=== PATIENT | male | born 1940 | race Caucasian/White ===

== ENCOUNTER 2020-01-05 08:37 | Inpatient (IN) | payer MEDICARE ==
--- NOTE | 2020-01-05 09:11 | ED ---
Complex/Multi-Sys Presentation - HPI Summary HPI Summary: 79 year old M with hx of hereditary hemorrhagic telangiectasia presenting to [facility] accompanied by EMS complains of weakening and numbing of his left leg that has made ambulating at home progressively more difficult. He normally uses a roller walker at home and he says he is losing his ability to put weight on his left leg. He has had weakness and numbness in his left leg for years but an onset of lower left hip pain 10 days ago, an onset of neck pain in the last 2 days, and 2 falls this morning prompted his trip to [facility]. No back injury during the falls noted. SHx of rotator cuff surgery years ago. Uses morphine for chronic pain. The patient rates the pain 5/10 in severity. Symptoms aggravated by nothing. Symptoms alleviated by nothing. - History Of Current Complaint Chief Complaint: EDGeneral Time Seen by Provider: 01/05/20 08:45 Hx Obtained From: Patient Onset/Duration: Lasting Days, Still Present Timing: Constant Aggravating Factor(s): nothing Alleviating Factor(s): nothing Associated Signs And Symptoms: Positive: Weakness - left leg - chronic and progrssive, Other - positive - weakness in left leg that is chronic and progressive, lower left hip pain, neck pain, 2 falls with no back injury - Allergies/Home Medications Allergies/Adverse Reactions: Allergies Allergy/AdvReac Type Severity Reaction Status Date / Time No Known Allergies Allergy Verified 01/05/20 08:50 Home Medications: Home Medications Ascorbic Acid TAB* [Vitamin C TAB*] 1,000 mg PO DAILY 04/23/14 [History Confirmed 01/05/20] Ferrous Sulfate [Iron] 650 mg PO DAILY 04/23/14 [History Confirmed 01/05/20] Finasteride TAB* [Proscar TAB*] 5 mg PO DAILY 04/23/14 [History Confirmed ] Morphine Sulfate [Morphine Sulfate ER] 15 mg PO BID MDD 4 tabs 04/23/14 [ History Confirmed 01/05/20] Atenolol/Chlorthalidone [Atenolol/Chlorthalidone 50-25 mg-] 0.5 tab PO DAILY [History Confirmed 01/05/20] C/Sourcherry/Celery/Grape Seed [Tart Peguero Advanced] 1 cap PO DAILY 01/06/19 [ History Confirmed 01/05/20] Furosemide TAB* [Lasix TAB*] 20 mg PO DAILY PRN 01/06/19 [History Confirmed ] Calcium Carbonate/Vitamin D3 [Calcium 500 + Vit D Caplet] 1 tab PO DAILY [History Confirmed 01/05/20] Polyethylene Glycol 3350* [Miralax*] 17 gm PO DAILY 01/31/19 [History Confirmed 01/05/20] PMH/Surg Hx/FS Hx/Imm Hx Endocrine/Hematology History: Reports: Hx Anemia - ON DAILY IRON Denies: Hx Diabetes Cardiovascular History: Reports: Hx Aneurysm, Hx Hypercholesterolemia, Hx Hypertension - TAKES MEDICATION Denies: Hx Pacemaker/ICD Respiratory History: Reports: Hx Asthma - Hx OF, OK NOW GI History: Reports: Other GI Disorders - USES DAILYT STOOL SOFNER History: Denies: Hx Dialysis, Hx Renal Disease Musculoskeletal History: Reports: Hx Arthritis - MOST JOINTS Sensory History: Reports: Hx Contacts or Glasses - READING Denies: Hx Hearing Aid Opthamlomology History: Reports: Hx Contacts or Glasses - READING Neurological History: Reports: Hx Nerve Disease Denies: Other Neuro Impairments/Disorders - SINCE Hx PAIN & BLEEDING Psychiatric History: Denies: Hx Panic Disorder - Surgical History Surgery Procedure, Year, and Place: 1962 APPENDECTOMY [place]. LT RCT SURGERY [place] Hx Anesthesia Reactions: No Infectious Disease History: No Infectious Disease History: Denies: Traveled Outside the [place] in Last 30 Days - Family History Known Family History: Positive: Non-Contributory - Social History Alcohol Use: None Substance Use Type: Reports: None Smoking Status (MU): Former Smoker Type: Cigarettes Amount Used/How Often: 1PPD 15 YRS Have You Smoked in the Last Year: No Review of Systems Positive: Other - lower left hip pain, neck pain, 2 falls this morning with no back injury Positive: Weakness - left leg - chronic and progressive , Numbness - left leg - chronic and progressive All Other Systems Reviewed And Are Negative: Yes Physical Exam - Summary Physical Exam Summary: Constitutional: Well-developed, Well-nourished, Alert. (-) Distressed Skin: Warm, Dry. Mild skin breakdown of let buttocks. HENT: Normocephalic; Atraumatic Eyes: Conjunctiva normal Neck: Musculoskeletal ROM normal neck. (-) JVD, (-) Stridor, (-) Nuchal rigidity Cardio: Rhythm regular, rate normal, Heart sounds normal; Intact distal pulses; Radial pulses are 2+ and symmetric. (-) Murmur Pulmonary/Chest wall: Effort normal. (-) Respiratory distress, (-) Wheezes, (-) Rales Abd: Soft, (-) tenderness, (-) Distension, (-) Guarding, (-) Rebound Musculoskeletal: (-) Edema Lymph: (-) Cervical adenopathy Neuro: Alert, Oriented x3. 0/5 strength in left foot, ankle, and hip. 4/5 strength in RLE. 4/5 strength left arm and hand. 5/5 strength RUE. Sensation intact. No saddle anesthesia Psych: Mood and affect Normal Triage Information Reviewed: Yes Vital Signs On Initial Exam: Initial Vitals Temp Pulse Resp BP Pulse Ox 97.7 F 63 18 158/82 97 01/05/20 08:45 01/05/20 08:45 01/05/20 08:45 01/05/20 08:45 01/05/20 08:45 Vital Signs Reviewed: Yes Procedures - Sedation Patient Received Moderate/Deep Sedation with Procedure: No Diagnostics - Vital Signs Vital Signs Temp Pulse Resp BP Pulse Ox 01/05/20 08:45 97.7 F 63 18 158/82 97 - Laboratory Result Diagrams: 01/05/20 09:28 01/05/20 09:28 Lab Statement: Any lab studies that have been ordered have been reviewed, and results considered in the medical decision making process. - CT Thoracic Spine CT CT Interpretation Completed By: Radiologist Summary of CT Findings: IMPRESSION: 1. OSTEOPENIA. 2. DEGENERATIVE DISC DISEASE AND OSTEOARTHRITIS. 3. NO ACUTE OSSEOUS INJURY TO THE THORACIC SPINE. 4. 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 has reviewed this report. Cervical Spine CT CT Interpretation Completed By: Radiologist Summary of CT Findings: IMPRESSION: 1. No fracture or traumatic malalignment of cervical spine. 2. Varying degrees of multiple spondylosis results in at least moderate spinal canal. stenosis at C6-C7. There is multilevel neural foraminal stenosis as above. 3. Osteopenia. 4. 1.1 cm nodule left lobe of the thyroid. has reviewed this report. Lumbar Spine CT CT Interpretation Completed By: Radiologist Summary of CT Findings: IMPRESSION: 1. OSTEOPENIA. 2. DEGENERATIVE DISC DISEASE AND OSTEOARTHRITIS DESCRIBED ABOVE. 3. ACUTE OSSEOUS INJURY TO THE LUMBAR SPINE. has reviewed this report. Complex Multi-Symp Course/Dx Course Of Treatment: 79 y/o male w hx of hemorrhagic telangiectasia lumbosacral neuritis, compression of thoracic spinal cord, cervical myelopathy, chronic L sided weakness L>U, p/w worsening weakness and falls at home. - PE elderly male , neuro exam w 0/5 strength LLE, 4/5 LUE. Baseline but worsening per patient. Suspect progression of chronic disease. CT CTL spine obtained, no acute pathology. Patient cannot go home 2/2 safety concerns. Admit to hospital. - Diagnoses Provider Diagnoses: Left leg weakness - Physician Notifications Discussed Care Of Patient With: Yousuf Alexander - admit Time Discussed With Above Provider: 10:30 Instructed by Provider To: Admit As Inpatient Discharge ED - Sign-Out/Discharge Documenting (check all that apply): Patient Departure - admit - Discharge Plan Condition: Stable Disposition: ADMITTED TO [facility] Referrals: Molina Fay MD [Primary Care Provider] - - Billing Disposition and Condition Condition: STABLE Disposition: Admitted to [facility] - Attestation Statements Document Initiated by Vishalibe: Yes Documenting Scribe: Kelechi Marin Provider For Whom Alissa is Documenting (Include Credential): Dr.Caelyn Brittanie Whitley Scribe Attestation: IKelechi, scribed for Dr.Caelyn Brittanie Whitley on 01/05/20 at 1300. Scribe Documentation Reviewed: Yes Provider Attestation: The documentation as recorded by the Kelechi marti accurately reflects the service I personally performed and the decisions made by me, Dr.Caelyn Brittanie Whitley Status of Scribe Document: Viewed
[2020-01-05] MEDS ORDERED: Morphine TAB Extended Release (*) 15 MG TAB.ER PO ONE (09:14)
[2020-01-05 09:34] LABS: ABS Basophils 0.1 10^3/ul (0-0.2); ABS Eosinophils 0.1 10^3/ul (0-0.6); ABS Lymphocytes 0.6 10^3/ul (1.0-4.8); ABS Monocytes 0.6 10^3/ul (0-0.8); ABS Neutrophils 3.3 10^3/ul (1.5-7.7); Eosinophil % 2.7 %; Hematocrit 45 % (42-52); Hemoglobin 15.5 g/dL (14.0-18.0); Mean Corpuscular HGB Conc 34 g/dL (31-36); Mean Corpuscular Hemoglobin 31 pg (27-31); Mean Corpuscular Volume 91 fL (80-94); Mean Platelet Volume 8.8 fL (7.4-10.4); Nucleated Red Blood Cells % 0.1; Platelet Count 188 10^3/uL (150-450); Red Blood Count 4.94 10^6 /uL (4.18-5.48); Red Cell Distribution Width 14 % (10-15); White Blood Count 4.7 10^3/uL (3.5-10.8)
[2020-01-05 09:51] LABS: Albumin 3.3 g/dL (3.2-5.2); Albumin/Globulin Ratio 1.3 (1-3); BUN/Creatinine Ratio 22.1 (8-20); Calcium 8.9 mg/dL (8.6-10.3); EGFR African American 118.2 (>60); EGFR Non-African American 97.7 (>60); Globulin 2.6 g/dL (2-4); Potassium 3.6 mmol/L (3.5-5.0); Total Bilirubin 0.8 mg/dL (0.2-1.0); Total Protein 5.9 g/dL (6.4-8.9)
--- OUTSIDE RECORDS SUMMARY | 2020-01-05 10:31 | XMS REPORT | Continuity of Care Document ---
:1940 External Reference #:[id number] Author Name Molina Fay M.D. Address [address] [place] [address] [address] [place] [address] Care Team Providers Name Role Phone Yandel Zamorano MD - Internal Care Team Information Band Manager [phone] [facility] - Care Team Information Band Manager [phone] Gastroenterology Asif Allison MD - Neurology Care Team Information Band Manager Problems Active Problems Provider Date [place] haemorrhagic telangiectasia syndrome Molina Fay M.D. Onset: 06/24 Disorder of lipid metabolism Molina Fay M.D. Onset: 06/30/2005 Impaired fasting glycaemia Molina Fay M.D. Onset: 07/07/2005 Benign essential hypertension Molina Fay M.D. 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 Onset: 12/2010 obstruction Essential hypertension Molina Fay M.D. Onset: 09/02/2015 Disorder of fatty acid metabolism Molina Fay M.D. Onset: 09/02/2015 Slow transit constipation Molina Fay M.D. Onset: 03/02/2016 Social History Type Date Description Comments Sex Unknown Tobacco Use Start: Unknown End: Unknown Does Not Smoke Cigarettes Smoking Status Reviewed: 07/31/19 Does Not Smoke Cigarettes ETOH Use Rare Alcohol Use Recreational Drug Use Denies Drug Use Allergies, Adverse Reactions, Alerts Description No Known Drug Allergies Medications Active Medications SIG Qnty Indications Ordering Date Provider Compression Stockings use daily; put 2Pair R60.0 Molina Fay, 2017 20-30 mm HG on in in the M.D. Knee High morning and off at bedtime; please also measure for the stockings. Furosemide 1 by mouth in 30tabs R60.0 Molina Fay, 07/20/2018 20mg Tablets the morning if M.D. needed for leg swelling Tart Peguero Advanced one po daily Unknown 01/10/2018 Capsules Fluocinonide apply to 30gm R21 Molina Fay, 12/22/2017 0.1% Cream affected area on M.D. right thigh 2x/day as needed for rash Duoderm CGF Dressing apply to 10units L89.322 Molina Fay, 11/19/2017 affected area on M.D. 4"X4" Misc left buttock, change every 2-3 days, wash wound well before applying a new dressing Triamcinolone apply to 80gm Molina Fay, 10/01/2017 Acetonide affected areas M.D. 0.1% Cream up to 2x/day as needed for itch (do not use on face) Lift Chair 1units I78.0 Molina Fay, 04/04/2017 M.D. M62.81 Morphine Sulfate ER one by mouth twice 60tabs G89.4 Molina Fay, 03/06 daily for chronic M.D. 15mg Tablets ER pain; Rx due 11/26/19 Nizoral use 3 times per week 120units L21.9 Molina Fay, 09/02/2016 2% Shampoo to start ; may taper M.D. when well controlled for scalp itch / rash Calcium 1 qd Unknown 07/25/2015 Tablets Vitamin C 1 bid Unknown 07/25/2015 500mg Capsules Finasteride take one tablet by Unknown 12/06/2012 5mg mouth every day for Tablets enlarged prostate Nystatin apply to affected 30units B35.6 Molina Fay, 10/14/2012 area 3 times a day as M.D. 631918Uugz/GM Cream needed for groin rash. Ferrous Sulfate take 1 tablet (with 0tabs 280.9 Molina Fay, 2011 oj or vit c) every M.D. 325(65Fe) mg Tablets morning on empty DR stomach; increase to 2x/day after 1 week if tolerating well Miralax Use prn For 564.00 Molina Fay, 08/07/2008 3350NF Packet Constipation M.DPhong K59.01 Atenolol-Chlorthalidone Take 1/2 Tablet 45tabs I10 Molina Fay, 2007 50-25mg Tablets By Mouth Every M.D. Morning For High Blood Pressure Medications Administered in Office Medication SIG Qnty Indications Ordering Provider Date injection, kenalog, 10 mg Molina Fay M.D. 01/27/2012 Injection Immunizations CPT Code Status Date Vaccine Lot # [id number] Given 07/21/2019 Influenza Vaccine Split Virus Preservative Free Im Use (hi-dose) 39585 Given 03/10/2019 Shingrix Zoster (Shingles) Vaccine (HZV) Recomb,Subnit,Adjuvanted 92249 Given 01/08/2019 Shingrix Zoster (Shingles) Vaccine (HZV) Recomb,Subnit,Adjuvanted 87221 Given 07/19/2018 Influenza Vaccine, Inactivated, Subunit, [id number] Adjuvanted, For Intrmusc 62570 Given 07/09/2017 Influenza Vaccine Split Virus Preservative Free Im [id number] Use (hi-dose) 13733 Given 07/16/2016 Influenza Vaccine Split Virus Preservative Free Im [id number] Use (hi-dose) 49453 Given 07/26/2015 Prevnar 13 [id number] 20611 Given 07/26/2015 Influenza Vaccine Split Virus Preservative Free Im [id number] Use (hi-dose) 30346 Given 08/28/2014 Adacel or Boostrix, TDaP [id number] 25225 Given 08/28/2014 Influenza Vaccine Split Virus Preservative Free Im [id number] Use (hi-dose) 40996 Given 07/11/2013 Flu, Split Virus 3Yrs [id number] 48655 Given 06/24/2012 Flu, Split Virus 3Yrs [id number] 48193 Given 06/22/2011 Flu, Split Virus 3Yrs [id number] 03322 Given 09/03/2010 Pneumococcal Immunization [id number] 23795 Given 08/20/2010 Flu, Split Virus 3Yrs [id number] 06947 Given 08/26/2009 Td Immunization [id number] 40989 Given 07/26/2009 Flu, Split Virus 3Yrs [id number] 64758 Given 08/07/2008 Flu, Split Virus 3Yrs 44957 Given 08/07/2008 Flu, Split Virus 3Yrs [id number] 87179 Given 08/20/2007 Flu, Split Virus 3Yrs [id number] 31579 Given 08/18/2006 Flu, Split Virus 3Yrs [id number] 05576 Given 08/08/2005 Pneumococcal Immunization 05287 Given 08/08/2005 Pneumococcal Immunization 02625 Given 08/08/2005 Flu, Split Virus 3Yrs 42375 Given 08/08/2005 Flu, Split Virus 3Yrs 29038 Given 08/15/2003 Flu, Split Virus 3Yrs 35186 Given 07/25/1998 Td Immunization 06629 Given Unknown Zostavax Vital Signs Date Vital Result Comment 12/18/2019 3:16pm BP Systolic 142 mmHg BP Diastolic 80 mmHg Heart Rate 70 /min O2 % BldC Oximetry 96 % Weight 209.00 lb 09/08/2019 11:28am BP Systolic 138 mmHg BP Diastolic 80 mmHg Body Temperature 97.5 F Weight 217.00 lb w/shoes Results Test Acquired Date Facility Test Result H/L Range Note CBC Auto 10/06/2019 [facility] White Blood 6.1 10^3/uL Normal 3.5- 10.8 Diff [phone] Count Red Blood Count 4.83 10^6/uL Normal 4.18-5.48 Hemoglobin 15.1 g/dL Normal 14.0-18.0 Hematocrit 44 % Normal 42-52 Mean Corpuscular Volume 91 fL Normal 80-94 Mean Corpuscular Hemoglobin 31 pg Normal 27-31 Mean Corpuscular HGB Conc 34 g/dL Normal 31-36 Red Cell Distribution Width 14 % Normal 10-15 Platelet Count 185 10^3/uL Normal 150-450 Mean Platelet Volume 9.3 fL Normal 7.4-10.4 Abs Neutrophils 4.1 10^3/uL Normal 1.5-7.7 Abs Lymphocytes 0.9 10^3/uL Low 1.0-4.8 Abs Monocytes 0.6 10^3/uL Normal 0-0.8 Abs Eosinophils 0.3 10^3/uL Normal 0-0.6 Abs Basophils 0.0 10^3/uL Normal 0-0.2 Abs Nucleated RBC 0.0 10^3/uL Granulocyte % 67.8 % Lymphocyte % 15.2 % Monocyte % 10.6 % Eosinophil % 5.7 % Basophil % 0.7 % Nucleated Red Blood Cells % 0.1 Basic Metabolic Panel 10/06/2019 [facility] Sodium 138 mmol/L Normal 135-145 [phone] Potassium 4.2 mmol/L Normal 3.5-5.0 Chloride 99 mmol/L Low 101-111 Co2 Carbon Dioxide 33 mmol/L High 22-32 Anion Gap 6 mmol/L Normal 2-11 Glucose 96 mg/dL Normal 70-100 Blood Urea Nitrogen 16 mg/dL Normal 6-24 Creatinine 0.75 mg/dL Normal 0.67-1.17 BUN/Creatinine Ratio 21.3 High 8-20 Calcium 9.3 mg/dL Normal 8.6-10.3 Egfr Non- 101.0 >60 Egfr 122.2 >60 1 1 Because ethnic data is not always readily available, this report includes an eGFR for both -Americans and non- Americans. The National Kidney Disease Education Program (NKDEP) does not endorse the use of the MDRD equation for patients that are not between the ages of 18 and 70, are , have extremes of body size, muscle mass, or nutritional status, or are non- or non-. According to the National Kidney Foundation, irrespective of diagnosis, the stage of the disease is based on the level of kidney function: Stage Description GFR(mL/min/1.73 m(2)) 1 Kidney damage with normal or decreased GFR 90 2 Kidney damage with mild decrease in GFR 60-89 3 Moderate decrease in GFR 30-59 4 Severe decrease in GFR 15-29 5 Kidney failure <15 (or dialysis) Procedures Date Code Description Status 01/31/2019 65120840 Colonoscopy Completed Medical Devices Description No Information Available Encounters Type Date Location Provider Dx Diagnosis Office Visit 12/18/2019 Main Office Molina Fay, R06.00 Dyspnea, unspecified 3:00p M.D. Office Visit 09/08/2019 Main Office Molina Fay, R21 Rash and other 11:30a M.D. nonspecific skin eruption L72.3 Sebaceous cyst Office Visit 07/31/2019 3:00p Main Office Molina Fay, M25.512 Pain in left M.D. shoulder B07.9 Viral wart, unspecified Assessments Date Code Description Provider 12/18/2019 R06.00 Dyspnea, unspecified Molina Fay M.D. 09/08/2019 R21 Rash and other nonspecific skin eruption Molina Fay M.D. 09/08/2019 L72.3 Sebaceous cyst Molina Fay M.D. 07/31/2019 M25.512 Pain in left shoulder Molina Fay M.D. 07/31/2019 B07.9 Viral wart, unspecified Molina Fay M.D. Plan of Treatment Future Appointment(s):03/06/2020 10:30 am - Nurse's Schedule at Main [id number] 10:30 am - Molina Fay M.D. at Main [id number]/18/2019 - Molina Fay M.D.R06.00 Dyspnea, unspecifiedComments:He is describing air hunger, non exertional, no assoc MCKEON. It is coming in setting of inc stress andsome anxiety. Discussed that this appears to be an anxiety equivalent Sx. Discussed option of testing to incl imaging and labs, advised that many providers would advise this, advised yield of such a workup would be low. He elected to defer any eval, RTO prn if Sxs worsening.WRT Tx we discused option of SSRI as well as meds for prn use, all of wc he declined. Functional Status Description No Information Available Mental Status Description No Information Available Referrals Description No Information Available
[2020-01-05] MEDS ORDERED: Magnesium Hydroxide LIQ* 30 ML UDC PO PRN (12:28)
[2020-01-05 13:07] LABS: Urine Appearance Clear; Urine Bilirubin Negative (Negative); Urine Blood Negative (Negative); Urine Color Yellow; Urine Glucose Negative (Negative); Urine Ketones Negative (Negative); Urine Nitrite Negative (Negative); Urine Protein Negative (Negative); Urine Urobilinogen Negative (Negative)
--- NOTE | 2020-01-05 17:15 | HP ---
AMENDED REPORT NOW INCLUDES DESIGNATED COSIGNER - ESIGNED BEFORE ADJUSTMENTS ADMISSION HISTORY AND PHYSICAL: DATE OF ADMISSION: 01/05/20 PRIMARY CARE PROVIDER: Dr. Fay. ADMITTING PHYSICIAN: Dr. Alexander * (dictated by Sav Berrios NP). CHIEF COMPLAINT: Fell, weak. HISTORY OF PRESENT ILLNESS: Mr. eNwberry is a 79-year-old male with past medical history significant for HHT, hypertension, hypercholesterolemia, chronic back pain. He states that he fell twice today, once this morning in the bathroom, was able to get himself up with his walker and then fell again in the dining room. EMS was called and he was brought to the emergency department. The patient states that he has had weakness throughout his left side for years; however, it has been exacerbated over the last 10 days and exceptionally worse today. He states that he has been able to get around the house with his walker but that if he did not have his walker, he would fall. He states his balance is unsteady. He said that he has intermittent tingling to his left upper extremity and left lower extremity which is normal for him as well as weakness. His dosage of morphine which he uses chronically was recently increased. He does have a history of HHT which he states was diagnosed about 10 years ago. He has also had the weakness throughout the left side for about the same amount of time. He says that over the last 10 days his balance has gotten increasingly worse. His is almost 80 years old per his report and she is unable to take care of him. He says that he was barely able to get out of bed early this morning. There is a prior report from January 2019 that mentions the patient reporting that he "cannot use" his left lower extremity. While in the emergency department, the patient did have CT imaging of his thoracic, lumbar and cervical spine. He has had mild elevations in BP, but otherwise his vital signs have been stable. CBC is benign. Chemistry notes low sodium at 132. UA is unremarkable. He did receive a dose of morphine ER 15 mg while in the emergency department. The patient did have a very mild left-sided facial droop during interview and is unsure if he has this at baseline. A CT of the head was ordered; however, the patient declined CT. Declined any further imaging of his head or of his spine. Continued to state that he just wanted it to end and that he wanted to . Denies any thoughts of hurting himself. He is alert and orientedX4, did sign DNR/DNI order. Hospital Medicine was asked to evaluate the patient for admission. PAST MEDICAL HISTORY: 1. Hereditary hemorrhagic telangiectasia. 2. Hypertension. 3. SVT in 1996. 4. Hypercholesterolemia. 5. Childhood asthma. 6. BPH. 7. Chronic back pain. 8. Impaired fasting glycemia. 9. Obesity. 10. AVM of an upper limb. PAST SURGICAL HISTORY: 1. Left rotator cuff surgery in 1980. 2. History of tubular adenoma. 3. Appendectomy in 1961. 4. T and A. 5. Right carpal tunnel release with ulnar nerve decompression. HOME MEDICATIONS: 1. MiraLAX 17 g p.o. daily. 2. Advance 1 cap p.o. daily. 3. Ferrous sulfate 650 mg p.o. daily. 4. Ascorbic acid 1000 mg p.o. daily. 5. Furosemide 20 mg p.o. daily p.r.n. 6. Finasteride 5 mg p.o. daily. 7. Calcium carbonate/vitamin D3 one tab p.o. daily. 8. Atenolol/chlorthalidone 50/25 mg 0.5 tabs p.o. daily. 9. Morphine sulfate ER 15 mg 1 to 2 tabs p.o. b.i.d., max daily dose 4 tabs. ALLERGIES: No known allergies. FAMILY HISTORY: Mother with HHT, diabetes mellitus, and heart disease. Brother with HHT. Maternal grandmother with heart disease and diabetes mellitus. SOCIAL HISTORY: The patient states that a surrogate decision maker for him would be his , Zainab Newberry. He is a retired meza. He currently lives with his . He states that he quit smoking in 1975, started when he was 16 years old and eventually increased his smoking habits to 2 packs per day prior to quitting. He has 2 children. REVIEW OF SYSTEMS: A 12-point review of systems was completed with this patient. Please see HPI for all pertinent positives and negatives. PHYSICAL EXAMINATION CONSTITUTIONAL: The patient is lying in bed, appears uncomfortable. VITAL SIGNS: Last vital signs, temp 97.7, heart rate 63, BP 158/82, respiratory rate 18, O2 sat 97% on room air. HEENT: PERRL. No scleral icterus noted. LYMPHATIC: No anterior or posterior cervical lymphadenopathy noted. RESPIRATORY: Lung sounds clear throughout bilaterally. Normal respiratory effort. CARDIOVASCULAR: Heart rate regular. Grade 2/6 systolic murmur best heard at left upper sternal border. S1, S2 present. No rubs or gallops noted. No JVD. EXTREMITIES: Pedal pulses present 2+ bilaterally. Trace nonpitting edema. GI: Normoactive bowel sounds throughout. Abdomen is soft, mild tenderness to left lower quadrant with deep palpation. NEUROLOGIC: Alert and oriented x3. Significant left-sided weakness with very mild left-sided facial droop which improved during exam. He can follow commands. EOMI. Difficulty with peripheral kurtz to left upper quadrant and right upper quadrant. Difficulty assessing extremity drift. He is able to sense light touch to bilateral feet. Speech is clear. No dysarthria. No abnormality with extinction or inattention. MUSCULOSKELETAL: The patient is able to actively lift left upper extremity up with difficulty, able to lift right upper extremity. right lower extremity, can lift up off of bed for a couple of seconds, unable to move left lower extremity. SKIN: Appears dry and intact. DIAGNOSTIC STUDIES/LAB DATA: CT lumbar spine, impression states osteopenia. Degenerative disk disease and osteoarthritis as described above. No acute osseous injury to the lumbar spine. This was confirmed via telephone with Dr. Ho. Axial images show T12-L1, there is moderate bilateral neural foraminal narrowing. There is no osseous central canal stenosis. L1-L2, there is mild bilateral neural foraminal narrowing. There is no osseous central canal stenosis. L2-L3, there is severe right and moderate left neural foraminal narrowing. There is moderate narrowing in the central canal. L3-L4, there is moderate to severe bilateral neural foraminal narrowing. There is moderate narrowing of the central canal. L4- L5, there is severe bilateral neural foraminal narrowing. There is moderate to severe narrowing of the central canal. L5-S1, there is severe left and mild right neural foraminal narrowing. There is no osseous central canal stenosis. Thoracic spine CT, impression states osteopenia. Degenerative disk disease and osteoarthritis. No acute osseous injury to the thoracic spine. Exposure to granulomatous disease. Intervertebral disks, there is diffuse loss of intervertebral disk height throughout the spine. CT cervical spine, impression states no fracture, traumatic malalignment of cervical spine. Varying degrees of multiple spondylosis results in at least moderate spinal canal stenosis at C6 and C7. There is multilevel neural foraminal stenosis as above. Osteopenia. 1.1 cm nodule on left lobe of the thyroid. There is moderate to severe multilevel vertebral disk height loss with relative sparing of C2 through C3. The paraspinal and prevertebral soft tissues are grossly unremarkable. Dystrophic calcification is seen in the tips of several spinous processes. Varying degrees of multilevel spondylosis results in at least mild spinal canal stenosis at C4 through C5 and moderate spinal canal stenosis at C6 through C7. There is moderate to severe osseous encroachment of the neural foramina bilaterally from the C3 through C4 through C6 through C7. Laboratory values: CBC without a diff essentially unremarkable. Chemistries: Sodium 132, potassium 3.6, chloride 96, carbon dioxide 30, anion gap 6, BUN 17, creatinine 0.77, estimated GFR 97.7, BUN/creatinine ratio 22.1, glucose 110, calcium 8.9. Total bilirubin 0.8, AST 21, ALT 17, alk phosphatase 71. Total protein 5.9, albumin 3.3, globulin 2.6. UA unremarkable for infection with ascorbic acid present. ASSESSMENT AND PLAN: Mr. Newberry is a 79-year-old male with past medical history significant for hereditary hemorrhagic telangiectasia, hypertension, hypercholesterolemia, supraventricular tachycardia, benign prostatic hyperplasia , chronic back pain. He presents today with complaints of excessively increased weakness over the last 10 days for which today he was even more weak and fell 2 times. He is declining further imaging and is showing signs significant with a clinically significant depression. 1. Acute on chronic left-sided weakness. The patient states he has had weakness throughout the left side for many years. However, it has been worse over the last 10 days and exceptionally worse today. He fell twice today. He did have a mild left-sided facial droop during beginning of assessment which seemed to improve mostly by the end of assessment. His weakness may be in relation to an active or prior cerebrovascular accident versus change in medications versus infection, versus significant clinical depression vs bleeding in or surrounding PLANOGRAMMER r/t HHT. Discussed concern for various disease processes with pt. -CTA brain, the patient is declining further imaging. -MRI of spine, again the patient is declining. -Neurology consult, the patient is again declining a Neurology consult -PT/OT. -Treatment of lower extremity muscle spasms. -Decrease morphine dosage to original dose of morphine ER 15 mg b.i.d. -UA. 2. Other depressive episode. The patient continues to speak about how he just wants "it all to end" and wants to . Keeps talking about how he does not want to be a burden to his and family and how much he loves them. He has decided to be a DNR/DNI with limited medical interventions specified by his MOLST. The patient states that he was recently prescribed Prozac, but is unsure if he has started taking this medication yet or not. Prescription has been verified with external medication history. -Psychiatric consult. -Continue fluoxetine. 3. Hypertension. BP has been mildly elevated while in the hospital. -Continue usual antihypertensive medications. 4. Hypercholesterolemia. The patient states that his doctor took him off of his prior cholesterol medications. No need to start new medications at this time. -He can follow up about this as an outpatient with his PCP. 5. Hereditary hemorrhagic telangiectasia. The patient states he has a significant history of bleeding in relation to his hereditary hemorrhagic telangiectasia. -We will hold any anticoagulation at this time and refrain from any other medications that would predispose him to bleeding. 6. Chronic back pain. See imaging reports. The patient does have significant pain. He is treated chronically with morphine. -Continue morphine ER 15 mg p.o. b.i.d. 7. FEN: Regular diet. No caffeine. 8. Code status: DNR/DNI. 9. DVT prophylaxis: SCDs. DISPOSITION: [facility]. CONDITION: Stable. TIME SPENT: Approximately 75 minutes was spent on this admission with almost half of that being [id number] with the patient for interview, exam, and reviewing plan of care. This plan has been discussed with my attending physician, Dr. Alexander, and he agrees with this plan. SAV BERRIOS NP [id number]/CPS #: [id number] MTDD
[2020-01-05] MEDS ORDERED: Acetaminophen TAB* 325 MG PO ONE (18:29)
[2020-01-05] MEDS: Morphine TAB Extended Release (*) 15 MG TAB.ER PO SCH ×2 (20:37→20:49)
[2020-01-05] MEDS: Cyclobenzaprine TAB* 10 MG PO PRN (20:44)
[2020-01-05] MEDS ORDERED: NS 0.9% 1000 ML** 1,000 ML IV ONE (22:45)
[2020-01-06] MEDS: Ascorbic Acid TAB* 500 MG PO SCH (10:18)
[2020-01-06] MEDS: Polyethylene Glycol 3350* 17 GM PACKET PO SCH (10:18)
[2020-01-06] MEDS: Ferrous Sulfate TAB* 325 MG PO SCH (10:19)
[2020-01-06] MEDS: FLUoxetine CAP* 20 MG PO SCH (10:19)
[2020-01-06] MEDS: Atenolol TAB* 25 MG PO SCH (10:20)
[2020-01-06] MEDS: Calcium/Vitamin D TAB 250/125* TAB PO SCH (10:20)
[2020-01-06] MEDS: Morphine TAB Extended Release (*) 15 MG TAB.ER PO SCH ×2 (10:20→22:43)
[2020-01-06] MEDS: Chlorthalidone TAB* 50 MG PO SCH (10:21)
[2020-01-06] MEDS: Finasteride TAB* 5 MG PO SCH (10:21)
--- NOTE | 2020-01-06 10:57 | PN ---
Subjective Date of Service: 01/06/20 Interval History: Resting in bed with at bedside. Discussed events leading up to his admission. He reports he has been dealing with back pain and left sided weakness for apprx 10 yrs. Reports over the last 10 days things have worsened. He reports he saw his PCP on Thursday 12/28 and morphine dose was increased. He reports he use to see Neurology (Dr Allison) for weakness and pain, but decided to stop seeing him and have his PCP order his morphine. He denies any recent trauma or s/s infection. Discussed further evaluation for worsening symptoms and he declines. He reports he wants to be kept comfortable. He further explains he cannot return home with his because she cannot provide the care he needs. Objective Active Medications: Acetaminophen (Tylenol Tab*) 650 mg PO Q4H PRN PRN Reason: PAIN - MILD Ascorbic Acid (Vitamin C Tab*) 1,000 mg PO DAILY [facility] Last Admin: 01/06/20 10:18 Dose: Not Given Atenolol (Tenormin Tab*) 25 mg PO DAILY [facility] Last Admin: 01/06/20 10:20 Dose: 25 mg Calcium/Vitamin D (Oscal D Tab 250/125*) 1 tab PO DAILY [facility] Last Admin: 01/06/20 10:20 Dose: Not Given Chlorthalidone (Hygroton Tab*) 12.5 mg PO DAILY [facility] Last Admin: 01/06/20 10:21 Dose: 12.5 mg Cyclobenzaprine HCl (Flexeril Tab*) 10 mg PO TID PRN PRN Reason: SPASMS Last Admin: 01/05/20 20:44 Dose: 10 mg Ferrous Sulfate (Ferrous Sulfate Tab*) 650 mg PO DAILY [facility] Last Admin: 01/06/20 10:19 Dose: 650 mg Finasteride (Proscar Tab*) 5 mg PO DAILY [facility] Last Admin: 01/06/20 10:21 Dose: 5 mg Fluoxetine HCl (Prozac Cap*) 20 mg PO DAILY [facility] Last Admin: 01/06/20 10:19 Dose: 20 mg Sodium Chloride (Ns 0.9% 1000 Ml) 1,000 mls @ 50 mls/hr IV .PER RATE ONE Stop: 01/06/20 18:44 Last Admin: 01/05/20 22:44 Dose: 50 mls/hr Magnesium Hydroxide (Milk Of Magnesia Liq*) 30 ml PO Q4H PRN PRN Reason: CONSTIPATION Morphine Sulfate (Ms Contin(*)) 15 mg PO BID [facility] Last Admin: 01/06/20 10:20 Dose: 15 mg Polyethylene Glycol/Electrolytes (Miralax (17 Gm Dose Patricio)) 17 gm PO DAILY [facility] Last Admin: 01/06/20 10:18 Dose: Not Given Vital Signs - 8 hr 01/06/20 01/06/20 01/06/20 03:55 07:57 08:17 Temperature 97.1 F 97.3 F Pulse Rate 57 65 Respiratory 18 16 16 Rate Blood Pressure 147/72 149/83 (mmHg) O2 Sat by Pulse 98 97 Oximetry 01/06/20 10:20 Temperature Pulse Rate Respiratory 18 Rate Blood Pressure (mmHg) O2 Sat by Pulse Oximetry Oxygen Devices in Use Now: None Appearance: Comfortable, NAD Eyes: No Scleral Icterus Ears/Nose/Mouth/Throat: Clear Oropharnyx, Mucous Membranes Moist Neck: NL Appearance and Movements; NL JVP Respiratory: Symmetrical Chest Expansion and Respiratory Effort, Clear to Auscultation Cardiovascular: NL Sounds; No Murmurs; No JVD, RRR, No Edema Abdominal: NL Sounds; No Tenderness; No Distention Lymphatic: No Cervical Adenopathy Extremities: No Clubbing, Cyanosis Skin: No Rash or Ulcers Neurological: Alert and Oriented x 3, - - Left sided weakness Nutrition: Taking PO's Result Diagrams: 01/05/20 09:28 01/05/20 09:28 Additional Lab and Data: . Assess/Plan/Problems-Billing Assessment: 79 yr old male with pmh of HHT, htn, hld, chronic back pain; who presented to the ED for a fall and weakness - Patient Problems (1) Left-sided weakness Comment: - Acute on chronic - Left sided weakness for many years that has worsened in the last 10 days - Declining imaging, neuro consult, or further evaluation. - PT/OT consult placed due to patient's request for placement (2) Depression Comment: - Expressed wanting to to admitting provider. Reports to be he wants to be kept comfortable. No active SI - Psych consult - Cont Prozac (3) Hypertension Comment: - Cont Atenolol/Chlorthalidone and Lasix (4) Hereditary hemorrhagic telangiectasia Comment: - Cont home iron - Hold on any AC given hx of bleeding (5) Chronic back pain Comment: - Cont home dose Morphine (6) DVT prophylaxis Comment: - SCDs given HHT (7) DNR (do not resuscitate) Comment: - DNR/DNI Attending: Stanton Kelly
--- NOTE | 2020-01-06 16:17 | CONSULT ---
Identification - Patient Identification Reason for Psychiatric Consultation: Incapacitating Symptoms -: Patient is a 79 year old, M admitted on 01/05/20. - MHU Identification Employment Status: Disabled - pHYSICALLY Hx Psychiatric Hospitalization: No Arrived to Hospital Via: Ambulatory History - Objective HPI: 79 Y/O male with no h/o mental illness but multiple chronic and disabling physical health conditions for which he has been on medical floor. During his assessment he had mentioned not to continue his life , rather to end his sufferings. When I went to see him he was alert and orientedX4, wanted to know why I was there. When I explained my purpose of seeing him he wasn't interested but spoke to me briefly. He reports that his condition is improving and he changed his mind and doesn't have any suicidal thoughts or intents. He acknowledges that he is depressed, and feels helpless. He and his 80y/o has been struggling to care for each other will be fine with a little help at home. 4 children from his and his 's previous marriages live far away but are in touch and supportive. He declined an offer of any psychiatric meds or therapies at this time but will think about it. Denies any psychotic ,manic or hypo-manic symptoms. Past Medical History: Please refer to H&P. Exam Appearance: Well Developed/Nourished Hygiene: Normal Grooming: Well Kept Psychomotor Activities: Abnormal-Decreased Exhibits Abnormal Movement: No Attitude and Relatedness: Minimally Cooperative Eye Contact: Poor - Speech Quality: Unpressured Latencies: Long Quantity: Terse Patient's Decription of Mood: "Fine" Observed Affect: Constricted Affect Consistent with: Dysphoria Patient's Thought Process: Coherent, Goal Directed Thought Content: No Passive Wish, No Suicidal Planning, No Homicidal Ideation, No Paranoid Ideation Experiencing Hallucinations: No, Sensorium is Clear Type of Hallucinations: Visual: No, Auditory: No, Command: No Level of Consciousness: Alert Orientation: Yes Intact, Yes Orientated to Time, Yes Orientated to Place, Yes Orientated to Person Impulse Control: Intact Insight and Judgement: Poor Impression - Impression Clinical Impression: 79 y/o CM admitted to medical floor due to multiple chronic and disabling physical health issues expressed suicidal thought but denies any thoughts end his life any more as he is feeling better. He continues to be depressed but declines an offer for treatments at this time. Plan - Treatment Plan Continued Medication Management: Consider Medication - May offer Zolofe 25 mg PO once a day. Medications: Current Medications Acetaminophen (Tylenol Tab*) 650 mg PO Q4H PRN PRN Reason: PAIN - MILD Ascorbic Acid (Vitamin C Tab*) 1,000 mg PO DAILY [facility] Last Admin: 01/06/20 10:18 Dose: Not Given Atenolol (Tenormin Tab*) 25 mg PO DAILY [facility] Last Admin: 01/06/20 10:20 Dose: 25 mg Calcium/Vitamin D (Oscal D Tab 250/125*) 1 tab PO DAILY [facility] Last Admin: 01/06/20 10:20 Dose: Not Given Chlorthalidone (Hygroton Tab*) 12.5 mg PO DAILY [facility] Last Admin: 01/06/20 10:21 Dose: 12.5 mg Cyclobenzaprine HCl (Flexeril Tab*) 10 mg PO TID PRN PRN Reason: SPASMS Last Admin: 01/05/20 20:44 Dose: 10 mg Ferrous Sulfate (Ferrous Sulfate Tab*) 650 mg PO DAILY [facility] Last Admin: 01/06/20 10:19 Dose: 650 mg Finasteride (Proscar Tab*) 5 mg PO DAILY [facility] Last Admin: 01/06/20 10:21 Dose: 5 mg Fluoxetine HCl (Prozac Cap*) 20 mg PO DAILY [facility] Last Admin: 01/06/20 10:19 Dose: 20 mg Sodium Chloride (Ns 0.9% 1000 Ml) 1,000 mls @ 50 mls/hr IV .PER RATE ONE Stop: 01/06/20 18:44 Last Admin: 01/05/20 22:44 Dose: 50 mls/hr Magnesium Hydroxide (Milk Of Magnesia Liq*) 30 ml PO Q4H PRN PRN Reason: CONSTIPATION Morphine Sulfate (Ms Contin(*)) 15 mg PO BID [facility] Last Admin: 01/06/20 10:20 Dose: 15 mg Polyethylene Glycol/Electrolytes (Miralax (17 Gm Dose Patricio)) 17 gm PO DAILY [facility] Last Admin: 01/06/20 10:18 Dose: Not Given - Discharge Plan Discharge Plan: Outpatient Follow Up Outpatient Program: TBD.
[2020-01-06] MEDS ORDERED: Furosemide TAB* 20 MG PO PRN (16:48)
--- NOTE | 2020-01-06 20:00 | PN ---
Hospitalist Progress Note Date of Service: 01/05/20 ADDENDUM to admission H+P assessment and plan: 1.1cm nodule to L lobe of thyroid - per CT imaging, not easily palpable. -Can follow-up with PCP as outpatient if he so desires in accordance with his wishes.
[2020-01-06] MEDS: Cyclobenzaprine TAB* 10 MG PO PRN (22:56)
[2020-01-07] MEDS: Acetaminophen TAB* 325 MG PO PRN ×2 (01:58→12:40)
[2020-01-07] MEDS: Cyclobenzaprine TAB* 10 MG PO PRN ×3 (02:00→22:03)
[2020-01-07 06:53] LABS: BUN/Creatinine Ratio 17.8 (8-20); Calcium 8.3 mg/dL (8.6-10.3); EGFR African American 125.7 (>60); EGFR Non-African American 103.9 (>60); Potassium 3.3 mmol/L (3.5-5.0)
[2020-01-07] MEDS: Ferrous Sulfate TAB* 325 MG PO SCH (08:18)
[2020-01-07] MEDS: Morphine TAB Extended Release (*) 15 MG TAB.ER PO SCH ×2 (08:19→20:07)
[2020-01-07] MEDS: Finasteride TAB* 5 MG PO SCH (08:19)
[2020-01-07] MEDS: Ascorbic Acid TAB* 500 MG PO SCH (08:19)
[2020-01-07] MEDS: FLUoxetine CAP* 20 MG PO SCH (08:19)
[2020-01-07] MEDS: Atenolol TAB* 25 MG PO SCH (08:19)
[2020-01-07] MEDS: Chlorthalidone TAB* 50 MG PO SCH (08:20)
[2020-01-07] MEDS: Calcium/Vitamin D TAB 250/125* TAB PO SCH (08:20)
[2020-01-07] MEDS: Polyethylene Glycol 3350* 17 GM PACKET PO SCH (08:22)
[2020-01-07] MEDS ORDERED: Potassium Chlor TAB* 20 MEQ TAB.ER PO ONE (16:32)
--- NOTE | 2020-01-07 16:40 | PN ---
Subjective Date of Service: 01/07/20 Interval History: Patient lying in bed on assessment. Continues to report he does not want further evaluation of left hip/leg pain such as MRI or specialist consult. Continues to report left hip/leg pain. Reports he felt some relief when sitting on the edge of them bed. Continues to express wanting placement as he does not feel he can go home with his as his cannot take care of him Objective Active Medications: Acetaminophen (Tylenol Tab*) 650 mg PO Q4H PRN PRN Reason: PAIN - MILD Last Admin: 01/07/20 12:40 Dose: 650 mg Ascorbic Acid (Vitamin C Tab*) 1,000 mg PO DAILY [facility] Last Admin: 01/07/20 08:19 Dose: 1,000 mg Atenolol (Tenormin Tab*) 25 mg PO DAILY [facility] Last Admin: 01/07/20 08:19 Dose: 25 mg Calcium/Vitamin D (Oscal D Tab 250/125*) 1 tab PO DAILY [facility] Last Admin: 01/07/20 08:20 Dose: 1 tab Chlorthalidone (Hygroton Tab*) 12.5 mg PO DAILY [facility] Last Admin: 01/07/20 08:20 Dose: 12.5 mg Cyclobenzaprine HCl (Flexeril Tab*) 10 mg PO TID PRN PRN Reason: SPASMS Last Admin: 01/07/20 12:39 Dose: 10 mg Ferrous Sulfate (Ferrous Sulfate Tab*) 650 mg PO DAILY [facility] Last Admin: 01/07/20 08:18 Dose: 650 mg Finasteride (Proscar Tab*) 5 mg PO DAILY [facility] Last Admin: 01/07/20 08:19 Dose: 5 mg Fluoxetine HCl (Prozac Cap*) 20 mg PO DAILY [facility] Last Admin: 01/07/20 08:19 Dose: 20 mg Furosemide (Lasix Tab*) 20 mg PO DAILY PRN PRN Reason: edema Magnesium Hydroxide (Milk Of Magnesia Liq*) 30 ml PO Q4H PRN PRN Reason: CONSTIPATION Morphine Sulfate (Ms Contin(*)) 15 mg PO BID [facility] Last Admin: 01/07/20 08:19 Dose: 15 mg Polyethylene Glycol/Electrolytes (Miralax (17 Gm Dose Patricio)) 17 gm PO DAILY [facility] Last Admin: 01/07/20 08:22 Dose: 17 gm Potassium Chloride (Klor Con Er Tab*) 40 meq PO ONCE ONE Stop: 01/07/20 16:33 Vital Signs - 8 hr 01/07/20 01/07/20 01/07/20 11:15 11:32 12:39 Temperature 97.8 F Pulse Rate 57 Respiratory 16 20 20 Rate Blood Pressure 113/67 (mmHg) O2 Sat by Pulse 93 Oximetry 01/07/20 01/07/20 15:15 16:32 Temperature 97.3 F Pulse Rate 55 Respiratory 16 20 Rate Blood Pressure 111/64 (mmHg) O2 Sat by Pulse 95 Oximetry Oxygen Devices in Use Now: None Appearance: Comfortable, NAD Eyes: No Scleral Icterus Ears/Nose/Mouth/Throat: Clear Oropharnyx, Mucous Membranes Moist Neck: NL Appearance and Movements; NL JVP Respiratory: Symmetrical Chest Expansion and Respiratory Effort, Clear to Auscultation Cardiovascular: NL Sounds; No Murmurs; No JVD, RRR, No Edema Abdominal: NL Sounds; No Tenderness; No Distention Extremities: No Clubbing, Cyanosis Skin: No Rash or Ulcers Neurological: Alert and Oriented x 3, - - Weakness to LUE and LLE (baseline for patient) Nutrition: Taking PO's Result Diagrams: 01/05/20 09:28 01/07/20 05:56 Additional Lab and Data: . Assess/Plan/Problems-Billing Assessment: 79 yr old male with pmh of HHT, htn, hld, chronic back pain; who presented to the ED for a fall and weakness - Patient Problems (1) Chronic back pain Comment: - Pain consult placed - Cont home dose Morphine (2) Left-sided weakness Comment: - Continues to decline further evaluation such as MRI - Acute on chronic - Left sided weakness for many years that has worsened in the last 10 days - PT recommends STR (3) Depression Comment: - Expressed wanting to to admitting provider. Reports to be he wants to be kept comfortable. No active SI - Psych consult - Cont Prozac (4) Hypertension Comment: - Cont Atenolol/Chlorthalidone and Lasix (5) Hereditary hemorrhagic telangiectasia Comment: - Cont home iron - Hold on any AC given hx of bleeding (6) DVT prophylaxis Comment: - SCDs given HHT (7) DNR (do not resuscitate) Comment: - DNR/DNI Attending: Stanton Kelly
[2020-01-07 16:52] LABS: Magnesium 1.6 mg/dL (1.9-2.7)
[2020-01-07] MEDS ORDERED: Magnesium Sulfate 2 GM IV* 2 GM/50 ML BAG IVPB ONE (17:51)
--- NOTE | 2020-01-08 05:32 | PN ---
Hospitalist Progress Note Date of Service: 01/08/20 Pt with multiple small amts of urine. Bladder scan for 620, auth for straight cath one time, check UA
[2020-01-08 06:10] LABS: Urine Color Red
[2020-01-08 06:23] LABS: Urine Appearance Cloudy; Urine Bacteria Absent (Absent); Urine Bilirubin Negative (Negative); Urine Blood 3+ (Negative); Urine Glucose Negative (Negative); Urine Ketones Trace (Negative); Urine Nitrite Negative (Negative); Urine Protein 1+(30 mg/dL) (Negative); Urine Red Blood Cell 3+(>10/hpf) (Absent); Urine Specific Gravity 1.012 (1.010-1.030); Urine Urobilinogen Negative (Negative); Urine White Blood Cell 3+(>20/hpf) (Absent)
[2020-01-08] MEDS: Ascorbic Acid TAB* 500 MG PO SCH (07:42)
[2020-01-08] MEDS: Polyethylene Glycol 3350* 17 GM PACKET PO SCH (07:42)
[2020-01-08] MEDS: Atenolol TAB* 25 MG PO SCH (07:42)
[2020-01-08] MEDS: FLUoxetine CAP* 20 MG PO SCH (07:42)
[2020-01-08] MEDS: Acetaminophen TAB* 325 MG PO PRN (07:43)
[2020-01-08] MEDS: Chlorthalidone TAB* 50 MG PO SCH (07:43)
[2020-01-08] MEDS: Calcium/Vitamin D TAB 250/125* TAB PO SCH (07:43)
[2020-01-08] MEDS: Ferrous Sulfate TAB* 325 MG PO SCH (07:43)
[2020-01-08] MEDS: Finasteride TAB* 5 MG PO SCH (07:43)
[2020-01-08] MEDS: Morphine TAB Extended Release (*) 15 MG TAB.ER PO SCH ×2 (07:43→20:47)
[2020-01-08] MEDS: Cyclobenzaprine TAB* 10 MG PO PRN ×2 (07:44→20:49)
[2020-01-08 09:44] LABS: BUN/Creatinine Ratio 22.1 (8-20); Calcium 8.7 mg/dL (8.6-10.3); EGFR African American 136.5 (>60); EGFR Non-African American 112.8 (>60); Magnesium 1.8 mg/dL (1.9-2.7); Potassium 3.8 mmol/L (3.5-5.0)
[2020-01-08] MEDS ORDERED: Magnesium Sulfate 1 GM IV* 1 GM/100 ML BAG IV ONE (11:21)
--- NOTE | 2020-01-08 11:41 | PN ---
Subjective Date of Service: 01/08/20 Interval History: Patient drowsy, did not keep eyes open during exam. Spoke very faintly, most answered only yes or no questions but occasionally would respond with a sentence. Stated he was tired, did not sleep well last night due to spasms in primarily his left leg. Denies lightheadedness, dizziness, chest pain, abdominal pain, nausea, vomiting. Family History: Unchanged from Admission Social History: Unchanged from Admission Past Medical History: Unchanged from Admission Objective Active Medications: Acetaminophen (Tylenol Tab*) 650 mg PO Q4H PRN PRN Reason: PAIN - MILD Last Admin: 01/08/20 07:43 Dose: 650 mg Ascorbic Acid (Vitamin C Tab*) 1,000 mg PO DAILY [facility] Last Admin: 01/08/20 07:42 Dose: 1,000 mg Atenolol (Tenormin Tab*) 25 mg PO DAILY [facility] Last Admin: 01/08/20 07:42 Dose: 25 mg Calcium/Vitamin D (Oscal D Tab 250/125*) 1 tab PO DAILY [facility] Last Admin: 01/08/20 07:43 Dose: 1 tab Chlorthalidone (Hygroton Tab*) 12.5 mg PO DAILY [facility] Last Admin: 01/08/20 07:43 Dose: 12.5 mg Cyclobenzaprine HCl (Flexeril Tab*) 10 mg PO TID PRN PRN Reason: SPASMS Last Admin: 01/08/20 07:44 Dose: 10 mg Ferrous Sulfate (Ferrous Sulfate Tab*) 650 mg PO DAILY [facility] Last Admin: 01/08/20 07:43 Dose: 650 mg Finasteride (Proscar Tab*) 5 mg PO DAILY [facility] Last Admin: 01/08/20 07:43 Dose: 5 mg Fluoxetine HCl (Prozac Cap*) 20 mg PO DAILY [facility] Last Admin: 01/08/20 07:42 Dose: 20 mg Furosemide (Lasix Tab*) 20 mg PO DAILY PRN PRN Reason: edema Magnesium Sulfate/Dextrose (Magnesium Sulfate 1 Gm Iv*) 1 gm in 100 mls @ 200 mls/hr IV ONCE ONE Stop: 01/08/20 11:50 Magnesium Hydroxide (Milk Of Magnesia Liq*) 30 ml PO Q4H PRN PRN Reason: CONSTIPATION Morphine Sulfate (Ms Contin(*)) 15 mg PO BID [facility] Last Admin: 01/08/20 07:43 Dose: 15 mg Polyethylene Glycol/Electrolytes (Miralax (17 Gm Dose Patricio)) 17 gm PO DAILY [facility] Last Admin: 01/08/20 07:42 Dose: 17 gm Vital Signs - 8 hr 01/08/20 01/08/20 01/08/20 07:15 07:43 07:44 Temperature 97.6 F Pulse Rate 74 Respiratory 20 18 18 Rate Blood Pressure 119/64 (mmHg) O2 Sat by Pulse 97 Oximetry 01/08/20 01/08/20 01/08/20 07:52 09:54 09:55 Temperature Pulse Rate Respiratory 18 18 18 Rate Blood Pressure (mmHg) O2 Sat by Pulse Oximetry 01/08/20 11:15 Temperature 97.3 F Pulse Rate 58 Respiratory 20 Rate Blood Pressure 119/69 (mmHg) O2 Sat by Pulse 94 Oximetry Oxygen Devices in Use Now: None Appearance: This is a pale, ill looking older gentleman seen resting in bed with eyes closed. Eyes: No Scleral Icterus, PERRLA Ears/Nose/Mouth/Throat: - - Mucous membranes dry, left sided facial droop. Neck: NL Appearance and Movements; NL JVP, Trachea Midline Respiratory: Symmetrical Chest Expansion and Respiratory Effort, Clear to Auscultation, - - Diminished throughtout bilaterally on room air. Cardiovascular: NL Sounds; No Murmurs; No JVD, RRR, No Edema Abdominal: NL Sounds; No Tenderness; No Distention Lymphatic: No Cervical Adenopathy Extremities: No Edema, No Clubbing, Cyanosis Skin: No Rash or Ulcers, No Nodules or Sclerosis Neurological: - - Oriented to self Lines/Tubes/Other Access: Clean, Dry and Intact Peripheral IV Result Diagrams: 01/05/20 09:28 01/08/20 09:06 Additional Lab and Data: . Assess/Plan/Problems-Billing Assessment: 79 yr old male with pmh of HHT, htn, hld, chronic back pain; who presented to the ED for a fall and weakness - Patient Problems (1) Left-sided weakness Current Visit: Yes Status: Acute Code(s): R53.1 - WEAKNESS SNOMED Code(s) : 330066937 Comment: - Continues to decline further evaluation such as MRI. I suspect there may have been a stroke but patient does not wish to pursue diagnosis. - Acute on chronic weakness. - Left sided weakness for many years that has worsened in the last 10 days - PT recommends STR, family amenable. (2) Depression Current Visit: Yes Status: Acute Code(s): F32.9 - MAJOR DEPRESSIVE DISORDER , SINGLE EPISODE, UNSPECIFIED SNOMED Code(s): 54512162 Comment: - Continues to be profoundly depressed. Not inclined toward conversation. Expresses wanting to but has no plan. - Psych consult - Fluoxetine dosing increased by Dr. Gordon. Patient felt like his inital dosing started outpatient was doing nothing. (3) Hereditary hemorrhagic telangiectasia Current Visit: Yes Status: Acute Code(s): I78.0 - HEREDITARY HEMORRHAGIC TELANGIECTASIA SNOMED Code(s): 63198437 Comment: - Cont home iron - Hold on any AC given hx of bleeding (4) Hypertension Current Visit: Yes Status: Acute Code(s): I10 - ESSENTIAL (PRIMARY) HYPERTENSION SNOMED Code(s): 02380015 Comment: - Cont atenolol and prn furosemide. - Hold chlorthalidone as he appears to be dry. (5) BPH (benign prostatic hyperplasia) Current Visit: Yes Status: Acute Code(s): N40.0 - BENIGN PROSTATIC HYPERPLASIA WITHOUT LOWER URINRY TRACT SYMP SNOMED Code(s): 064574320 Comment: -Continue finesteride. Has been having difficulty with passing urine on his own, has been straight cathed twice since midnight. Just bladder scanned a third time at over 600ml residual, was unable to urinate. -Place mendoza cath and start tamsulosin. Keep mendoza in place for a week, then may attempt a voiding trial. (6) DVT prophylaxis Current Visit: Yes Status: Acute Code(s): Z29.9 - ENCOUNTER FOR PROPHYLACTIC MEASURES, UNSPECIFIED SNOMED Code(s): 825866846 Comment: - SCDs given HHT (7) DNR (do not resuscitate) Current Visit: Yes Status: Acute Comment: - DNR/DNI Status and Disposition: Condition: Fair Disp: Inpatient on 4S. D/C to [facility]. Attending: Stanton Kelly
[2020-01-08] MEDS ORDERED: NS 0.9% 1000 ML** 1,000 ML IV SCH (11:45)
--- NOTE | 2020-01-08 15:45 | CONSULT ---
Identification - Patient Identification Reason for Psychiatric Consultation: Incapacitating Symptoms -: Patient is a 79 year old, M admitted on 01/05/20. - MHU Identification Employment Status: Disabled Hx Psychiatric Hospitalization: No History - Objective HPI: Mr. Newberry is seen by psychiatry for follow up. He is met in his room on along with his Zainab. The patient initially dismisses me when I announce my name and reason for visiting. "I'm good. I don't need anything." He appears somatic with a constricted affect. The patient warms up a little upon further interview. He complains bitterly of pain in his left hip from HHT and says "I've been dealing with this for 15 years and I'm done." His notes that she has aphasia and other health problems and cannot take care of him at home anymore. They are looking for SNF placement someplace near [place], [place]. The patient informs me that his primary care physician, Dr. Fay, started him on fluoxetine about a month ago telling him that it would kick in in about 2-4 weeks. "It hasn't really done anything that I can tell." He is OK increasing the dose. Mr. Newberry denies active SI but continues to endorse the hope for an end to his physical suffering. Exam Appearance: Well Developed/Nourished Hygiene: Normal Grooming: Well Kept Psychomotor Activities: Abnormal-Decreased Exhibits Abnormal Movement: No Attitude and Relatedness: Minimally Cooperative Eye Contact: Poor - Speech Quality: Unpressured Latencies: Long Quantity: Terse Patient's Decription of Mood: "Fine" Observed Affect: Constricted Affect Consistent with: Dysphoria Patient's Thought Process: Coherent, Goal Directed Thought Content: No Passive Wish, No Suicidal Planning, No Homicidal Ideation, No Paranoid Ideation Experiencing Hallucinations: No, Sensorium is Clear Type of Hallucinations: Visual: No, Auditory: No, Command: No Level of Consciousness: Alert Orientation: Yes Intact, Yes Orientated to Time, Yes Orientated to Place, Yes Orientated to Person Impulse Control: Intact Insight and Judgement: Poor Impression - Impression Clinical Impression: 79 y/o CM admitted to medical floor due to multiple chronic and disabling physical health issues expressed suicidal thoughts upon admission but denies them currently. Inpatient DSM-V Dx: F32.1 Merits Inpatient Hospitalization: No BSU: Problem List - Patient Problems (1) Major depressive disorder, single episode, moderate Current Visit: Yes Status: Acute Priority: Medium Plan - Treatment Plan Treatment Plan: Will increase fluoxetine from 20 to 40mg PO qday. Psychiatry will continue to follow. Continued Medication Management: Continue Outpt Medication Medications: Current Medications Acetaminophen (Tylenol Tab*) 650 mg PO Q4H PRN PRN Reason: PAIN - MILD Last Admin: 01/08/20 07:43 Dose: 650 mg Ascorbic Acid (Vitamin C Tab*) 1,000 mg PO DAILY [facility] Last Admin: 01/08/20 07:42 Dose: 1,000 mg Atenolol (Tenormin Tab*) 25 mg PO DAILY [facility] Last Admin: 01/08/20 07:42 Dose: 25 mg Calcium/Vitamin D (Oscal D Tab 250/125*) 1 tab PO DAILY [facility] Last Admin: 01/08/20 07:43 Dose: 1 tab Chlorthalidone (Hygroton Tab*) 12.5 mg PO DAILY [facility] Last Admin: 01/08/20 07:43 Dose: 12.5 mg Cyclobenzaprine HCl (Flexeril Tab*) 10 mg PO TID PRN PRN Reason: SPASMS Last Admin: 01/08/20 07:44 Dose: 10 mg Ferrous Sulfate (Ferrous Sulfate Tab*) 650 mg PO DAILY [facility] Last Admin: 01/08/20 07:43 Dose: 650 mg Finasteride (Proscar Tab*) 5 mg PO DAILY [facility] Last Admin: 01/08/20 07:43 Dose: 5 mg Fluoxetine HCl (Prozac Cap*) 20 mg PO DAILY [facility] Last Admin: 01/08/20 07:42 Dose: 20 mg Furosemide (Lasix Tab*) 20 mg PO DAILY PRN PRN Reason: edema Sodium Chloride (Ns 0.9% 1000 Ml) 1,000 mls @ 100 mls/hr IV PER RATE [facility] Stop: 01/08/20 21:44 Last Admin: 01/08/20 12:04 Dose: 100 mls/hr Magnesium Hydroxide (Milk Of Magnesia Liq*) 30 ml PO Q4H PRN PRN Reason: CONSTIPATION Morphine Sulfate (Ms Contin(*)) 15 mg PO BID [facility] Last Admin: 01/08/20 07:43 Dose: 15 mg Polyethylene Glycol/Electrolytes (Miralax (17 Gm Dose Patricio)) 17 gm PO DAILY [facility] Last Admin: 01/08/20 07:42 Dose: 17 gm
[2020-01-08 19:30] LABS: Urine Appearance Cloudy; Urine Bilirubin Negative (Negative); Urine Blood 3+ (Negative); Urine Color Yellow; Urine Glucose Negative (Negative); Urine Ketones Negative (Negative); Urine Nitrite Negative (Negative); Urine Protein Negative (Negative); Urine Specific Gravity 1.012 (1.010-1.030); Urine Urobilinogen Negative (Negative)
[2020-01-08 19:38] LABS: Urine Bacteria 1+ (Absent); Urine Red Blood Cell 3+(>10/hpf) (Absent); Urine White Blood Cell 3+(>20/hpf) (Absent)
[2020-01-08] MEDS: Acetaminophen TAB* 325 MG PO SCH (20:48)
--- NOTE | 2020-01-09 04:50 | PN ---
Hospitalist Progress Note Date of Service: 01/09/20 call for tachycardia, 140's. Ekg ordered however tachmana coppola broke on his own , ekg with new t wave inversions, no chest pain, no sob, no lightheadedness, will check trop with am labs and also echo given hx of hereditary telangiectasia tx would be very limited given risk of bleeding
[2020-01-09 04:51] LABS: ABS Basophils 0.1 10^3/ul (0-0.2); ABS Eosinophils 0.4 10^3/ul (0-0.6); ABS Monocytes 0.9 10^3/ul (0-0.8); ABS Neutrophils 5.6 10^3/ul (1.5-7.7); Eosinophil % 5.3 %; Hematocrit 43 % (42-52); Hemoglobin 14.9 g/dL (14.0-18.0); Lymphocyte % 12.8 %; Mean Corpuscular HGB Conc 35 g/dL (31-36); Mean Corpuscular Hemoglobin 32 pg (27-31); Mean Corpuscular Volume 91 fL (80-94); Mean Platelet Volume 8.6 fL (7.4-10.4); Nucleated Red Blood Cells % 0.1; Platelet Count 163 10^3/uL (150-450); Red Blood Count 4.69 10^6 /uL (4.18-5.48); Red Cell Distribution Width 14 % (10-15)
[2020-01-09 05:08] LABS: Anion Gap 6 mmol/L (2-11); BUN/Creatinine Ratio 23.9 (8-20); Blood Urea Nitrogen 16 mg/dL (6-24); CO2 Carbon Dioxide 26 mmol/L (22-32); Calcium 8.5 mg/dL (8.6-10.3); Chloride 99 mmol/L (101-111); EGFR African American 138.8 (>60); EGFR Non-African American 114.7 (>60); Glucose 102 mg/dL (70-100); Magnesium 1.7 mg/dL (1.9-2.7); Potassium 3.8 mmol/L (3.5-5.0); Sodium 131 mmol/L (135-145)
[2020-01-09 05:42] LABS: Troponin I 0.05 ng/mL (<0.03)
[2020-01-09] MEDS: Cyclobenzaprine TAB* 10 MG PO PRN (06:12)
[2020-01-09 08:17] LABS: Troponin I 0.04 ng/mL (<0.03)
[2020-01-09] MEDS ORDERED: Baclofen TAB* 10 MG PO ONE (08:37)
[2020-01-09] MEDS: Acetaminophen TAB* 325 MG PO SCH ×3 (08:48→20:23)
[2020-01-09] MEDS: Ascorbic Acid TAB* 500 MG PO SCH (08:50)
[2020-01-09] MEDS: Tamsulosin CAP* 0.4 MG PO SCH (08:50)
[2020-01-09] MEDS: Morphine TAB Extended Release (*) 15 MG TAB.ER PO SCH ×2 (08:50→21:27)
[2020-01-09] MEDS: Calcium/Vitamin D TAB 250/125* TAB PO SCH (08:50)
[2020-01-09] MEDS: Finasteride TAB* 5 MG PO SCH (08:52)
[2020-01-09] MEDS: Atenolol TAB* 25 MG PO SCH (08:52)
[2020-01-09] MEDS: FLUoxetine CAP* 20 MG PO SCH (08:53)
[2020-01-09] MEDS: Polyethylene Glycol 3350* 17 GM PACKET PO SCH (08:53)
[2020-01-09] MEDS: Ferrous Sulfate TAB* 325 MG PO SCH (08:53)
--- NOTE | 2020-01-09 10:08 | ECHO ---
*[facility]* [place] [address] Fax #: [phone] Transthoracic Echocardiogram Patient: Jose R Newberry : 1940 Study Date: 01/09/2020 Age: 79 Gender: M HR: 60 bpm Height: 73 in /185.4 cm BSA: 2.21 m^2 Weight: 206.6 lb /93.9 kg BMI: 27.3 kg/m^2 *Potato Peeler: * Chasity Duenas *Referring Physician: * Michael Singleton *Reading Physician: * Clyde Giron MD Indications: Abnormal EKG. History: Risk factors: Former tobacco use. Hypertension. Dyslipidemia. Family history is significant for coronary artery disease. Conclusions Summary: - Left ventricle: Systolic function is normal. The estimated ejection fraction is 55-60%. Wall motion is normal; there are no regional wall motion abnormalities. - Mitral valve: There is trace regurgitation. - Aortic valve: There is no evidence of stenosis. There is trace to mild regurgitation. - Pulmonary arteries: Systolic pressure is within the normal range, estimated to be 35 mm Hg. - Study data: No prior study is available for comparison. Study data: Transthoracic echocardiogram. Procedure: Transthoracic echocardiography was performed. Image quality was good. Complete 2D, spectral Doppler, and color flow Doppler. Location: Bedside. Patient status: Inpatient. Patient room number: 446-02. No prior study is available for comparison. Rhythm: Normal sinus rhythm. Findings Left ventricle: The cavity size is normal. Wall thickness is normal. Systolic function is normal. The estimated ejection fraction is 55-60%. Wall motion is normal; there are no regional wall motion abnormalities. Left ventricular diastolic function parameters are normal. Right ventricle: The cavity size is mildly dilated. Systolic function is normal. Ventricular septum: The ventricular septum is normal. Left atrium: The atrium is normal in size. Right atrium: The atrium is normal in size. Atrial septum: No defect or patent foramen ovale is identified. Mitral valve: The valve is structurally normal. There is no evidence of stenosis. There is trace regurgitation. Aortic valve: The valve is trileaflet. The leaflets are mildly calcified. There is no evidence of stenosis. There is trace to mild regurgitation. Tricuspid valve: There is trace regurgitation. Pulmonic valve: The valve is structurally normal. There is no evidence of stenosis. There is trace regurgitation. Aorta: The aortic root appears normal. The aortic arch appears normal. Pericardium: There is no significant pericardial effusion. Pulmonary arteries: Systolic pressure is within the normal range, estimated to be 35 mm Hg. Systemic veins: Inferior vena cava: The vessel is normal in size. There is (>= 50%) respiratory change in the IVC dimension. Pulmonary veins: The Pulmonary veins appear normal. Measurements Left ventricle Value Ref Aortic valve continued Value Ref BATOOL, LAX 4.4 cm 4.2 - 5.8 LVOT/AV, VTI ratio 0.72 ----- ESD, LAX 2.7 cm 2.5 - 4.0 DAYNA, VTI 2.37 cm^2 ----- FS, LAX 38 % 25 - 43 DAYNA, Vmax 2.38 cm^2 ----- PW, ED, LAX (H) 1.1 cm 0.6 - 1.0 AR peak v 3.45 m/sec ----- AR decel time 3749 ms ----- LVOT Value Ref AR PHT 1087 ms ----- Diam, S 2.05 cm --------- AR peak grad 48 mm Hg ----- Area 3.3 cm^2 --------- Peak rudy, S 1.17 m/sec --------- Mitral valve Value Ref VTI, S 28.3 cm --------- Peak E 0.91 m/sec ----- Peak grad, S 5 mm Hg --------- Peak A 0.86 m/sec ----- Mean grad, S 3 mm Hg --------- Decel time 315 ms ----- Peak grad, D 3.3 mm Hg ----- Ventricular septum Value Ref Peak E/A ratio 1.05 ----- IVS, ED 1.0 cm 0.6 - 1.0 Pulmonic valve Value Ref Right ventricle Value Ref Peak v, S 1.13 m/sec ----- BATOOL, LAX 2.5 cm --------- Peak grad, S 5.2 mm Hg ----- BATOOL major ax, A4C (L) 4.8 cm 5.9 - 8.3 Tricuspid valve Value Ref Left atrium Value Ref TR peak v 2.73 m/sec <=2.8 LA ID 4.1 cm --------- Peak RV-RA grad, S 30 mm Hg ----- SI dim ES, LAX 4.1 cm --------- ML dim, A4C 5.3 cm --------- Aortic root Value Ref SI dim, A4C 6.0 cm --------- Root diam 3.3 cm <4.3 Vol/bsa, ES, 2-p 32 ml/m^2 16 - 34 Ascending aorta Value Ref Right atrium Value Ref AAo AP diam, S 3.6 cm ----- SI dim, ES (H) 5.7 cm 3.4 - 5.3 ML dim, ES, A4C 4.2 cm 2.6 - 4.4 Aortic arch Value Ref SI dim, ES, A4C (H) 5.7 cm 3.4 - 5.3 Arch diam 3.0 cm ----- Aortic valve Value Ref Decending aorta Value Ref Peak v, S 1.61 m/sec --------- Amber peak rudy 0.48 m/sec ----- VTI, S 39.1 cm --------- Mean grad, S 5.7 mm Hg --------- Inferior vena cava Value Ref Peak grad, S 10.4 mm Hg --------- Diam 2.7 cm ----- Legend: (L) and (H) radha values outside specified reference range. Prepared and electronically signed by Clyde Giron MD 01/09/2020 10:07
[2020-01-09] MEDS ORDERED: Magnesium Sulfate 2 GM IV* 2 GM/50 ML BAG IVPB ONE (12:01)
[2020-01-09] MEDS ORDERED: NS 0.9% 1000 ML** 1,000 ML IV ONE (14:59)
--- NOTE | 2020-01-09 15:56 | PN ---
Subjective Date of Service: 01/09/20 Interval History: Patient appeared to be more awake and engaging today. Was sitting up in a chair , speaking clearly. When asked about his mental health and coping he would begin to talk about it, then shut down and state that he was fine and everything was fine, even when talking about being overwhelmed by everything that has been happening to him this past week. He continues to decline further imaging. Reports that he has had trouble sleeping the past two nights due to pain and spasms in his left leg which have intensified this past week. He was given a one time does of baclofen his morning and appeared to respond better to that than flexeril. Family History: Unchanged from Admission Social History: Unchanged from Admission Past Medical History: Unchanged from Admission Objective Active Medications: Acetaminophen (Tylenol Tab*) 975 mg PO TID [facility] Last Admin: 01/09/20 13:50 Dose: 975 mg Ascorbic Acid (Vitamin C Tab*) 1,000 mg PO DAILY [facility] Last Admin: 01/09/20 08:50 Dose: 1,000 mg Atenolol (Tenormin Tab*) 25 mg PO DAILY [facility] Last Admin: 01/09/20 08:52 Dose: 25 mg Calcium/Vitamin D (Oscal D Tab 250/125*) 1 tab PO DAILY [facility] Last Admin: 01/09/20 08:50 Dose: 1 tab Cyclobenzaprine HCl (Flexeril Tab*) 10 mg PO TID PRN PRN Reason: SPASMS Last Admin: 01/09/20 06:12 Dose: 10 mg Ferrous Sulfate (Ferrous Sulfate Tab*) 650 mg PO DAILY [facility] Last Admin: 01/09/20 08:53 Dose: 650 mg Finasteride (Proscar Tab*) 5 mg PO DAILY [facility] Last Admin: 01/09/20 08:52 Dose: 5 mg Fluoxetine HCl (Prozac Cap*) 40 mg PO DAILY [facility] Last Admin: 01/09/20 08:53 Dose: 40 mg Sodium Chloride (Ns 0.9% 1000 Ml) 1,000 mls @ 1,000 mls/hr IV .PER RATE [facility] Stop: 01/09/20 15:58 Last Admin: 01/09/20 15:06 Dose: 1,000 mls/hr Magnesium Hydroxide (Milk Of Magnesia Liq*) 30 ml PO Q4H PRN PRN Reason: CONSTIPATION Morphine Sulfate (Ms Contin(*)) 15 mg PO BID [facility] Last Admin: 01/09/20 08:50 Dose: 15 mg Polyethylene Glycol/Electrolytes (Miralax (17 Gm Dose Patricio)) 17 gm PO DAILY [facility] Last Admin: 01/09/20 08:53 Dose: 17 gm Tamsulosin HCl (Flomax Cap*) 0.4 mg PO DAILY [facility] Last Admin: 01/09/20 08:50 Dose: 0.4 mg Vital Signs - 8 hr 01/09/20 01/09/20 01/09/20 08:00 08:35 08:50 Temperature Pulse Rate Respiratory 20 20 18 Rate Blood Pressure (mmHg) O2 Sat by Pulse Oximetry 01/09/20 01/09/20 01/09/20 11:05 11:10 14:44 Temperature 97.7 F 97.2 F Pulse Rate 59 65 Respiratory 18 18 18 Rate Blood Pressure 100/58 82/50 (mmHg) O2 Sat by Pulse 93 97 Oximetry Oxygen Devices in Use Now: None Appearance: This is a well developed older gentleman who appears to be more awake and engaged, no acute distress. Eyes: No Scleral Icterus, PERRLA Ears/Nose/Mouth/Throat: NL Teeth, Lips, Gums, Clear Oropharnyx, Mucous Membranes Moist Neck: NL Appearance and Movements; NL JVP Respiratory: Symmetrical Chest Expansion and Respiratory Effort, Clear to Auscultation Cardiovascular: NL Sounds; No Murmurs; No JVD, RRR, No Edema Abdominal: NL Sounds; No Tenderness; No Distention Lymphatic: No Cervical Adenopathy Extremities: No Edema, No Clubbing, Cyanosis Skin: No Rash or Ulcers, No Nodules or Sclerosis Neurological: Alert and Oriented x 3 Lines/Tubes/Other Access: Clean, Dry and Intact Peripheral IV Result Diagrams: 01/09/20 04:41 01/09/20 04:41 Additional Lab and Data: . Assess/Plan/Problems-Billing Assessment: 79 yr old male with pmh of HHT, htn, hld, chronic back pain; who presented to the ED for a fall and weakness - Patient Problems (1) Left-sided weakness Current Visit: Yes Status: Acute Code(s): R53.1 - WEAKNESS SNOMED Code(s) : 786890973 Comment: - Continues to decline further evaluation such as MRI. I suspect there may have been a stroke but patient does not wish to pursue diagnosis or treatment. - Acute on chronic weakness. - Left sided weakness for many years that has worsened in the last 10 days - PT recommends STR, family amenable. (2) Depression Current Visit: Yes Status: Acute Code(s): F32.9 - MAJOR DEPRESSIVE DISORDER , SINGLE EPISODE, UNSPECIFIED SNOMED Code(s): 74447064 Comment: - Continues to be profoundly depressed. Not inclined toward conversation. Expresses wanting to but has no plan. - Psych consult - Fluoxetine dosing increased by Dr. Gordon on 01/08/20. Patient felt like his inital dosing started outpatient was doing nothing. (3) Hereditary hemorrhagic telangiectasia Current Visit: Yes Status: Acute Code(s): I78.0 - HEREDITARY HEMORRHAGIC TELANGIECTASIA SNOMED Code(s): 48450903 Comment: - Cont home iron - Hold on any AC given hx of bleeding (4) Hypertension Current Visit: Yes Status: Acute Code(s): I10 - ESSENTIAL (PRIMARY) HYPERTENSION SNOMED Code(s): 95825805 Comment: - Bolused with 1L NS due to hypotension. - Cont atenolol. - Hold chlorthalidone and prn furosemide as he appears to be dry. (5) BPH (benign prostatic hyperplasia) Current Visit: Yes Status: Acute Code(s): N40.0 - BENIGN PROSTATIC HYPERPLASIA WITHOUT LOWER URINRY TRACT SYMP SNOMED Code(s): 853395842 Comment: - Mendoza placed on 01/08/20. Keep mendoza in place for a week, then may attempt a voiding trial. - Continue finesteride and tamsulosin. (6) DVT prophylaxis Current Visit: Yes Status: Acute Code(s): Z29.9 - ENCOUNTER FOR PROPHYLACTIC MEASURES, UNSPECIFIED SNOMED Code(s): 901880993 Comment: - SCDs given HHT (7) DNR (do not resuscitate) Current Visit: Yes Status: Acute Comment: - DNR/DNI Status and Disposition: Condition: Fair Disp: Inpatient on 4S. D/C to [facility] [place]. Attending: Tianna Mancilla
[2020-01-09] MEDS ORDERED: Baclofen TAB* 10 MG PO PRN (15:59)
[2020-01-10 04:46] LABS: ABS Basophils 0.1 10^3/ul (0-0.2); ABS Eosinophils 0.4 10^3/ul (0-0.6); ABS Lymphocytes 0.8 10^3/ul (1.0-4.8); ABS Monocytes 0.8 10^3/ul (0-0.8); Eosinophil % 7.4 %; Hematocrit 40 % (42-52); Lymphocyte % 13.4 %; Mean Corpuscular HGB Conc 35 g/dL (31-36); Mean Corpuscular Hemoglobin 32 pg (27-31); Mean Corpuscular Volume 91 fL (80-94); Mean Platelet Volume 8.7 fL (7.4-10.4); Platelet Count 168 10^3/uL (150-450); Red Blood Count 4.39 10^6 /uL (4.18-5.48); Red Cell Distribution Width 14 % (10-15); White Blood Count 6.1 10^3/uL (3.5-10.8)
[2020-01-10 05:03] LABS: BUN/Creatinine Ratio 29.7 (8-20); Calcium 8.2 mg/dL (8.6-10.3); EGFR African American 146.4 (>60); Magnesium 1.8 mg/dL (1.9-2.7); Potassium 3.8 mmol/L (3.5-5.0)
[2020-01-10] MEDS: Calcium/Vitamin D TAB 250/125* TAB PO SCH (08:28)
[2020-01-10] MEDS: Tamsulosin CAP* 0.4 MG PO SCH (08:28)
[2020-01-10] MEDS: Polyethylene Glycol 3350* 17 GM PACKET PO SCH (08:28)
[2020-01-10] MEDS: Acetaminophen TAB* 325 MG PO SCH ×3 (08:28→20:53)
[2020-01-10] MEDS: Atenolol TAB* 25 MG PO SCH (08:30)
[2020-01-10] MEDS: FLUoxetine CAP* 20 MG PO SCH (08:30)
[2020-01-10] MEDS: Morphine TAB Extended Release (*) 15 MG TAB.ER PO SCH ×2 (08:30→21:43)
[2020-01-10] MEDS: Ascorbic Acid TAB* 500 MG PO SCH (08:30)
[2020-01-10] MEDS: Ferrous Sulfate TAB* 325 MG PO SCH (08:31)
[2020-01-10] MEDS: Finasteride TAB* 5 MG PO SCH (08:31)
[2020-01-10 09:20] LABS: HDL Cholesterol 37.1 mg/dL
[2020-01-10] MEDS ORDERED: LORazepam TAB(*) 0.5 MG PO PRN (11:30)
[2020-01-10] MEDS: Magnesium Oxide TAB* 400 MG PO SCH ×2 (11:38→20:57)
[2020-01-10] MEDS: Baclofen TAB* 10 MG PO SCH ×3 (16:21→20:54)
--- NOTE | 2020-01-10 16:58 | CONSULT ---
Palliative / Hospice Consult Ordering Provider: Nelly Ortega - PCP-Sumeet Referal Reason: Goals of care/PEG/MS - Subjective Code Status: DNR Advance Directives Location: In Chart MOLST Part A Completed: Yes - on chart MOLST Part E Completed:: Yes - on chart - History or Present Illness History or Present Illness: 79yo male with HHT presents to ER with weakness and frequent falling due unsteady gait from hip pain. PMH is significant for hereditary hemorrhagic telangiectasia for 10 yrs, HTN, hypercholesterolemia, chronic back pain, SVT 1996 and BPH. PSHx lives with Zainab [phone] cell, both have 2 adult children from previous partners, retired meza, ex tob, no drugs, no etoh, walks with walker. Studies lumbar CT-osteopenia, DJD, OA, injury to bone, cervical CT-no fx, moderate spinal cord stenosis, osteopenia, thorax CT- osteopenia, DJD, OA, ekg-sinus kristel, ECHO EF 55-60%, H/H 14/40, plt 168, BUN/ Cr 19/.64, egfr 146, Ca 8.2, Mg 1.8, alb 3.3 and UC E.Faecalis. Pt admitted with acute on chronic L sided weakness and fall. All history is from pt, and medical record. Lab Values: Abnormal Lab Results 01/10/20 01/10/20 04:38 04:38 WBC 6.1 RBC 4.39 Hgb 14.0 Hct 40 L MCV 91 MCH 32 H MCHC 35 RDW 14 Plt Count 168 MPV 8.7 Neut % (Auto) 66.0 Lymph % (Auto) 13.4 [place] % (Auto) 12.4 Eos % (Auto) 7.4 Baso % (Auto) 0.8 Absolute Neuts (auto) 4.0 Absolute Lymphs (auto) 0.8 L Absolute Monos (auto) 0.8 Absolute Eos (auto) 0.4 Absolute Basos (auto) 0.1 Absolute Nucleated RBC 0.0 Nucleated RBC % 0.0 Sodium 131 L Potassium 3.8 Chloride 100 L Carbon Dioxide 27 Anion Gap 4 BUN 19 Creatinine 0.64 L Est GFR ( Amer) 146.4 Est GFR (Non-Af Amer) 121.0 BUN/Creatinine Ratio 29.7 H Glucose 103 H Calcium 8.2 L Magnesium 1.8 L Triglycerides 80 Cholesterol 131 LDL Cholesterol 78 HDL Cholesterol 37.1 Laboratory Last Values WBC 6.1 10^3/uL (3.5-10.8) 01/10/20 04:38 RBC 4.39 10^6 /uL (4.18-5.48) 01/10/20 04:38 Hgb 14.0 g/dL (14.0-18.0) 01/10/20 04:38 Hct 40 % (42-52) L 01/10/20 04:38 MCV 91 fL (80-94) 01/10/20 04:38 MCH 32 pg (27-31) H 01/10/20 04:38 MCHC 35 g/dL (31-36) 01/10/20 04:38 RDW 14 % (10-15) 01/10/20 04:38 Plt Count 168 10^3/uL (150-450) 01/10/20 04:38 MPV 8.7 fL (7.4-10.4) 01/10/20 04:38 Neut % (Auto) 66.0 % 01/10/20 04:38 Lymph % (Auto) 13.4 % 01/10/20 04:38 [place] % (Auto) 12.4 % 01/10/20 04:38 Eos % (Auto) 7.4 % 01/10/20 04:38 Baso % (Auto) 0.8 % 01/10/20 04:38 Absolute Neuts (auto) 4.0 10^3/ul (1.5-7.7) 01/10/20 04:38 Absolute Lymphs (auto) 0.8 10^3/ul (1.0-4.8) L 01/10/20 04:38 Absolute Monos (auto) 0.8 10^3/ul (0-0.8) 01/10/20 04:38 Absolute Eos (auto) 0.4 10^3/ul (0-0.6) 01/10/20 04:38 Absolute Basos (auto) 0.1 10^3/ul (0-0.2) 01/10/20 04:38 Absolute Nucleated RBC 0.0 10^3/ul 01/10/20 04:38 Nucleated RBC % 0.0 01/10/20 04:38 Sodium 131 mmol/L (135-145) L 01/10/20 04:38 Potassium 3.8 mmol/L (3.5-5.0) 01/10/20 04:38 Chloride 100 mmol/L (101-111) L 01/10/20 04:38 Carbon Dioxide 27 mmol/L (22-32) 01/10/20 04:38 Anion Gap 4 mmol/L (2-11) 01/10/20 04:38 BUN 19 mg/dL (6-24) 01/10/20 04:38 Creatinine 0.64 mg/dL (0.67-1.17) L 01/10/20 04:38 Est GFR ( Amer) 146.4 (>60) 01/10/20 04:38 Est GFR (Non-Af Amer) 121.0 (>60) 01/10/20 04:38 BUN/Creatinine Ratio 29.7 (8-20) H 01/10/20 04:38 Glucose 103 mg/dL (70-100) H 01/10/20 04:38 Calcium 8.2 mg/dL (8.6-10.3) L 01/10/20 04:38 Magnesium 1.8 mg/dL (1.9-2.7) L 01/10/20 04:38 Total Bilirubin 0.80 mg/dL (0.2-1.0) 01/05/20 09:28 AST 21 U/L (13-39) 01/05/20 09:28 ALT 17 U/L (7-52) 01/05/20 09:28 Alkaline Phosphatase 71 U/L (34-104) 01/05/20 09:28 Troponin I 0.04 ng/mL (<0.03) H* 01/09/20 07:46 Total Protein 5.9 g/dL (6.4-8.9) L 01/05/20 09:28 Albumin 3.3 g/dL (3.2-5.2) 01/05/20 09:28 Globulin 2.6 g/dL (2-4) 01/05/20 09:28 Albumin/Globulin Ratio 1.3 (1-3) 01/05/20 09:28 Triglycerides 80 mg/dL 01/10/20 04:38 Cholesterol 131 mg/dL 01/10/20 04:38 LDL Cholesterol 78 mg/dL 01/10/20 04:38 HDL Cholesterol 37.1 mg/dL 01/10/20 04:38 TSH 2.28 mcIU/mL (0.34-5.60) 01/08/20 09:06 Urine Color Yellow 01/08/20 18:48 Urine Appearance Cloudy 01/08/20 18:48 Urine pH 6.0 (5-9) 01/08/20 18:48 Ur Specific [place] 1.012 (1.010-1.030) 01/08/20 18:48 Urine Protein Negative (Negative) 01/08/20 18:48 Urine Ketones Negative (Negative) 01/08/20 18:48 Urine Blood 3+ (Negative) A 01/08/20 18:48 Urine Nitrate Negative (Negative) 01/08/20 18:48 Urine Bilirubin Negative (Negative) 01/08/20 18:48 Urine Urobilinogen Negative (Negative) 01/08/20 18:48 Ur Leukocyte Esterase 1+ (Negative) A 01/08/20 18:48 Urine WBC (Auto) 3+(>20/hpf) (Absent) A 01/08/20 18:48 Urine RBC (Auto) 3+(>10/hpf) (Absent) A 01/08/20 18:48 Urine Bacteria 1+ (Absent) A 01/08/20 18:48 Urine Glucose Negative (Negative) 01/08/20 18:48 Urine Ascorbic Acid * (Negative) A 01/08/20 18:48 - Objective Active Medications: Acetaminophen (Tylenol Tab*) 975 mg PO TID [facility] Last Admin: 01/10/20 16:21 Dose: Not Given Ascorbic Acid (Vitamin C Tab*) 1,000 mg PO DAILY [facility] Last Admin: 01/10/20 08:30 Dose: 1,000 mg Atenolol (Tenormin Tab*) 25 mg PO DAILY [facility] Last Admin: 01/10/20 08:30 Dose: 25 mg Baclofen (Lioresal Tab*) 10 mg PO TID [facility] Last Admin: 01/10/20 16:21 Dose: Not Given Calcium/Vitamin D (Oscal D Tab 250/125*) 1 tab PO DAILY [facility] Last Admin: 01/10/20 08:28 Dose: 1 tab Ferrous Sulfate (Ferrous Sulfate Tab*) 325 mg PO DAILY [facility] Last Admin: 01/10/20 08:31 Dose: 325 mg Finasteride (Proscar Tab*) 5 mg PO DAILY [facility] Last Admin: 01/10/20 08:31 Dose: 5 mg Fluoxetine HCl (Prozac Cap*) 40 mg PO DAILY [facility] Last Admin: 01/10/20 08:30 Dose: 40 mg Lorazepam (Ativan Tab(*)) 0.5 mg PO Q6H PRN PRN Reason: ANXIETY Magnesium Hydroxide (Milk Of Magnesia Liq*) 30 ml PO Q4H PRN PRN Reason: CONSTIPATION Magnesium Oxide (Magox 400 Tab*) 400 mg PO BID [facility] Last Admin: 01/10/20 11:38 Dose: Not Given Morphine Sulfate (Ms Contin(*)) 15 mg PO BID [facility] Last Admin: 01/10/20 08:30 Dose: 15 mg Morphine Sulfate (Morphine Oral Concentrate*) 5 mg PO Q4H PRN PRN Reason: PAIN - SEVERE Polyethylene Glycol/Electrolytes (Miralax (17 Gm Dose Patricio)) 17 gm PO DAILY [facility] Last Admin: 01/10/20 08:28 Dose: 17 gm Tamsulosin HCl (Flomax Cap*) 0.4 mg PO DAILY [facility] Last Admin: 01/10/20 08:28 Dose: 0.4 mg Vital Signs: Vital Signs: Temp Pulse Resp BP Pulse Ox 97.7 F 59 16 125/63 97 01/10/20 11:15 01/10/20 11:15 01/10/20 11:39 01/10/20 11:15 01/10/20 11:15 Patient Weight: Weight 93.894 kg Intake and Output: Intake & Output 01/08/20 01/09/20 01/10/20 01/11/20 06:59 06:59 06:59 06:59 Intake Total 540 2716 830 0 Output Total 757 972 0253 600 Balance -170 1916 -445 -600 Intake: IV Fluids 990 NS (0.9%) 990 IVPB 106 NS (0.9%) 106 Oral 540 1620 830 0 Output: Urine 140 250 Self 800 1275 350 Other 570 Other: Estimated Void Small Large Medium Other Amount Description via straight cath dt urine retention # Voids 1 ADLs: Meal Record Start: 01/05/20 14: 26 Freq: DAILY@0900,1400,1800 Status: Active Protocol: Created 01/05/20 14:26 System (Rec: 01/05/20 14:26 System TELE-C11) Document 01/05/20 18:00 [id number] (Rec: 01/05/20 18:28 [id number] TELE-C13) Document 01/06/20 18:00 [id number] (Rec: 01/06/20 18:51 [id number] TELE-C03) Document 01/07/20 09:00 [id number] (Rec: 01/07/20 10:09 [id number] TELE-M04) Document 01/07/20 13:35 [id number] (Rec: 01/07/20 13:35 IHY5578 TELE-M04) Document 01/07/20 18:00 [id number] (Rec: 01/07/20 19:04 AJH1789 TELE-C11) Document 01/08/20 09:00 [id number] (Rec: 01/08/20 10:12 CXA4026 TELE-C07) Document 01/08/20 14:00 SSO7096 (Rec: 01/08/20 14:21 [id number] TELE-C13) Document 01/08/20 17:59 [id number] (Rec: 01/08/20 17:59 [id number] TELE-C05) Document 01/09/20 09:00 BYG5115 (Rec: 01/09/20 10:27 [id number] TELE-C05) Document 01/09/20 13:43 [id number] (Rec: 01/09/20 13:43 ACS0622 TELE-C13) Document 01/09/20 18:00 [id number] (Rec: 01/09/20 18:04 DCC1312 TELE-C13) Document 01/10/20 09:00 UUP9920 (Rec: 01/10/20 09:34 DYU4860 TELE-C13) Document 01/10/20 14:00 ATW9004 (Rec: 01/10/20 15:18 GIP7062 TELE-C05) Intake and Output Start: 01/05/20 08: 49 Freq: Status: Active Protocol: Created 01/05/20 08:49 System (Rec: 01/05/20 08:49 System EDRM-C04) Intake and Output Start: 01/05/20 14: 26 Freq: DAILY@0600,1400,2200 Status: Active Protocol: Created 01/05/20 14:26 System (Rec: 01/05/20 14:26 System TELE-C11) Document 01/05/20 22:00 [id number] (Rec: 01/06/20 03:16 [id number] TELE-C05) Document 01/06/20 06:00 [id number] (Rec: 01/06/20 07:35 DGD9660 TELE-C08) Document 01/06/20 08:01 [id number] (Rec: 01/06/20 08:02 MOH5629 TELE-C05) Document 01/06/20 14:21 [id number] (Rec: 01/06/20 14:21 [id number] TELE-C08) Document 01/06/20 22:00 TLS9264 (Rec: 01/06/20 22:57 WFM3850 TELE-C03) Document 01/07/20 06:00 UOU7102 (Rec: 01/07/20 06:23 HLH4525 TELE-C08) Document 01/07/20 13:35 [id number] (Rec: 01/07/20 13:36 SKG4592 TELE-M04) Document 01/07/20 21:57 [id number] (Rec: 01/07/20 21:57 HOO3373 TELE-C11) Document 01/08/20 04:22 [id number] (Rec: 01/08/20 04:24 GHP0389 TELE-C05) Document 01/08/20 06:00 NJZ2918 (Rec: 01/08/20 06:31 FGN5199 TELE-C05) Document 01/08/20 06:00 TTF6024 (Rec: 01/08/20 06:52 OGG2778 TELE-C13) Document 01/08/20 14:00 HYU3657 (Rec: 01/08/20 14:30 YST1802 TELE-C13) Document 01/08/20 22:00 ZBX0553 (Rec: 01/08/20 22:36 DZA5086 TELE-C10) Document 01/08/20 22:00 SAW0754 (Rec: 01/08/20 22:37 HBL6959 TELE-C11) Document 01/09/20 05:39 [id number] (Rec: 01/09/20 05:39 [id number] TELE-C10) Document 01/09/20 13:43 HFZ0643 (Rec: 01/09/20 13:43 EGG7303 TELE-C13) Document 01/09/20 22:00 (Rec: 01/09/20 22:22 TELE-C06) Document 01/10/20 06:00 QSN5189 (Rec: 01/10/20 06:52 OHP3699 TELE-C05) Document 01/10/20 14:00 [id number] (Rec: 01/10/20 15:18 [id number] TELE-C05) Eyes: No Scleral Icterus, PERRLA Ears/Nose/Mouth/Throat: NL Teeth, Lips, Gums, Clear Oropharnyx, Mucous Membranes Moist Neck: NL Appearance and Movements; NL JVP Cardiovascular: NL Sounds; No Murmurs; No JVD, RRR, No Edema Abdominal: NL Sounds; No Tenderness; No Distention Extremities: No Edema, No Clubbing, Cyanosis Neurological: Alert and Oriented x 3 - Assessment Assessment: 79yo male with HHT and chronic pain admitted with weakness and frequent falls - Plan Consult Plan (MU): Palliative Plan: Long discussion with pt and about goals of care. has mild expressive aphasia. Pt's brother had HHT who at [facility] with GI bleed after declining blood transfusions. Pt has a miserable existence always in pain which limit his activities and causes falling due to unsteady gait. He has chronic hip pain related to HHT, spinal stenosis, DJD and osteoarthritis. Pt has stopped eating due to pain and narcotic use for pain control. He has no quality of life always in pain. can no longer care for pt because she can' t pick him up when he falls. ORLINST completed DNR/DNI, no feeding tube, no IV fluids. If pt develops bleeding complications from HHT he doesn't want transfusion. Pt and have expressed an interest in hospice residence. Pt eligibility would be based on pt refusing intervention for HHT, overall decline and not eating/drinking. KPS 40%, PPS 40%. - Time On Unit Date of Evaluation: 01/10/20 Hospice Consult Time in: 16:30 Hospice Consult Time Out: 17:30 Hospice Consult Time Total: 60 > 50% of Time Spend In Counseling or Coordinating Care: Yes
--- NOTE | 2020-01-10 17:03 | CONSULT ---
Identification - Patient Identification Reason for Psychiatric Consultation: Suicidal Ideation -: Patient is a 79 year old, M admitted on 01/05/20. - MHU Identification Employment Status: Disabled Hx Psychiatric Hospitalization: No History - Objective HPI: Mr. Newberry is seen by psychiatry for follow up. He remains in physical distress, depressed and pessimistic about getting better from his chronic HHT condition. Both the patient and his , Zainab, who is at bedside, continue to express an interest and preference for palliative care. The patient is barely eating anything. He is drowsy from pain medication but completely oriented to his surroundings and situation. The patient understands that hospice care entails the discontinuation of life-extending therapies and chooses this. Exam Appearance: Well Developed/Nourished Hygiene: Normal Grooming: Well Kept Psychomotor Activities: Abnormal-Decreased Exhibits Abnormal Movement: No Attitude and Relatedness: Cooperative Eye Contact: Poor - Speech Quality: Unpressured Latencies: Long Quantity: Terse Patient's Decription of Mood: "Fine" Observed Affect: Constricted Affect Consistent with: Dysphoria Patient's Thought Process: Coherent, Goal Directed Thought Content: No Passive Wish, No Suicidal Planning, No Homicidal Ideation, No Paranoid Ideation Experiencing Hallucinations: No, Sensorium is Clear Type of Hallucinations: Visual: No, Auditory: No, Command: No Level of Consciousness: Lethargic Orientation: Yes Intact, Yes Orientated to Time, Yes Orientated to Place, Yes Orientated to Person Impulse Control: Intact Insight and Judgement: Fair Impression - Impression Clinical Impression: 79 y/o CM admitted to medical floor due to multiple chronic and disabling physical health issues presents with depression. Inpatient DSM-V Dx: F32.1 Merits Inpatient Hospitalization: No BSU: Problem List - Patient Problems (1) Major depressive disorder, single episode, moderate Current Visit: Yes Status: Acute Priority: Medium Plan - Treatment Plan Treatment Plan: We have increased the patient's fluoxetine from 20 to 40mg PO qday. In my judgment the patient has capacity to choose palliative care. I see no psychiatric contraindications to prison facility placement. Psychiatry will continue to follow. Continued Medication Management: Continue Outpt Medication Medications: Current Medications Acetaminophen (Tylenol Tab*) 975 mg PO TID [facility] Last Admin: 01/10/20 16:21 Dose: Not Given Ascorbic Acid (Vitamin C Tab*) 1,000 mg PO DAILY [facility] Last Admin: 01/10/20 08:30 Dose: 1,000 mg Atenolol (Tenormin Tab*) 25 mg PO DAILY [facility] Last Admin: 01/10/20 08:30 Dose: 25 mg Baclofen (Lioresal Tab*) 10 mg PO TID [facility] Last Admin: 01/10/20 16:21 Dose: Not Given Calcium/Vitamin D (Oscal D Tab 250/125*) 1 tab PO DAILY [facility] Last Admin: 01/10/20 08:28 Dose: 1 tab Ferrous Sulfate (Ferrous Sulfate Tab*) 325 mg PO DAILY [facility] Last Admin: 01/10/20 08:31 Dose: 325 mg Finasteride (Proscar Tab*) 5 mg PO DAILY [facility] Last Admin: 01/10/20 08:31 Dose: 5 mg Fluoxetine HCl (Prozac Cap*) 40 mg PO DAILY [facility] Last Admin: 01/10/20 08:30 Dose: 40 mg Lorazepam (Ativan Tab(*)) 0.5 mg PO Q6H PRN PRN Reason: ANXIETY Magnesium Hydroxide (Milk Of Magnesia Liq*) 30 ml PO Q4H PRN PRN Reason: CONSTIPATION Magnesium Oxide (Magox 400 Tab*) 400 mg PO BID [facility] Last Admin: 01/10/20 11:38 Dose: Not Given Morphine Sulfate (Ms Contin(*)) 15 mg PO BID [facility] Last Admin: 01/10/20 08:30 Dose: 15 mg Morphine Sulfate (Morphine Oral Concentrate*) 5 mg PO Q4H PRN PRN Reason: PAIN - SEVERE Polyethylene Glycol/Electrolytes (Miralax (17 Gm Dose Patricio)) 17 gm PO DAILY [facility] Last Admin: 01/10/20 08:28 Dose: 17 gm Tamsulosin HCl (Flomax Cap*) 0.4 mg PO DAILY [facility] Last Admin: 01/10/20 08:28 Dose: 0.4 mg
--- NOTE | 2020-01-10 17:04 | PN ---
Subjective Date of Service: 01/10/20 Interval History: After receiving news this morning that [facility] had retracted their offer for a bad, patient became increasingly more depressed, stating that he was giving up and did not want to live anymore. He was tired of dealing with his chronic pain , was aware of his increasingly poor health. in the room. They both requested a palliative care consult. With regards to concerns about his ability to clearly make decisions for himself, I notified Dr. Nielsen who came and spoke to the patient about his current mental health. He agreed that patient was of sound mind to make medical decisions for himself and was comfortable with moving forward with a palliative care consult. I spoke at great length with the patient and his about goals of care, life expectancy, placement for care and medications. They understand that none of the medications he takes are life sustaining and that even if they were to be withdrawn, it would not necessarily hasten his passing. Family History: Unchanged from Admission Social History: Unchanged from Admission Past Medical History: Unchanged from Admission Objective Active Medications: Acetaminophen (Tylenol Tab*) 975 mg PO TID [facility] Last Admin: 01/10/20 16:21 Dose: Not Given Ascorbic Acid (Vitamin C Tab*) 1,000 mg PO DAILY [facility] Last Admin: 01/10/20 08:30 Dose: 1,000 mg Atenolol (Tenormin Tab*) 25 mg PO DAILY [facility] Last Admin: 01/10/20 08:30 Dose: 25 mg Baclofen (Lioresal Tab*) 10 mg PO TID [facility] Last Admin: 01/10/20 16:21 Dose: Not Given Calcium/Vitamin D (Oscal D Tab 250/125*) 1 tab PO DAILY [facility] Last Admin: 01/10/20 08:28 Dose: 1 tab Ferrous Sulfate (Ferrous Sulfate Tab*) 325 mg PO DAILY [facility] Last Admin: 01/10/20 08:31 Dose: 325 mg Finasteride (Proscar Tab*) 5 mg PO DAILY [facility] Last Admin: 01/10/20 08:31 Dose: 5 mg Fluoxetine HCl (Prozac Cap*) 40 mg PO DAILY [facility] Last Admin: 01/10/20 08:30 Dose: 40 mg Lorazepam (Ativan Tab(*)) 0.5 mg PO Q6H PRN PRN Reason: ANXIETY Magnesium Hydroxide (Milk Of Magnesia Liq*) 30 ml PO Q4H PRN PRN Reason: CONSTIPATION Magnesium Oxide (Magox 400 Tab*) 400 mg PO BID [facility] Last Admin: 01/10/20 11:38 Dose: Not Given Morphine Sulfate (Ms Contin(*)) 15 mg PO BID [facility] Last Admin: 01/10/20 08:30 Dose: 15 mg Morphine Sulfate (Morphine Oral Concentrate*) 5 mg PO Q4H PRN PRN Reason: PAIN - SEVERE Polyethylene Glycol/Electrolytes (Miralax (17 Gm Dose Patricio)) 17 gm PO DAILY [facility] Last Admin: 01/10/20 08:28 Dose: 17 gm Tamsulosin HCl (Flomax Cap*) 0.4 mg PO DAILY [facility] Last Admin: 01/10/20 08:28 Dose: 0.4 mg Vital Signs - 8 hr 01/10/20 01/10/20 11:15 11:39 Temperature 97.7 F Pulse Rate 59 Respiratory 20 16 Rate Blood Pressure 125/63 (mmHg) O2 Sat by Pulse 97 Oximetry Oxygen Devices in Use Now: None Appearance: This is a pale, well developed older adult in mild distress. Eyes: No Scleral Icterus, PERRLA Ears/Nose/Mouth/Throat: NL Teeth, Lips, Gums, Clear Oropharnyx, - - Mucous membranes are dry. Neck: NL Appearance and Movements; NL JVP, Trachea Midline Respiratory: Symmetrical Chest Expansion and Respiratory Effort, Clear to Auscultation Cardiovascular: NL Sounds; No Murmurs; No JVD, RRR, No Edema Abdominal: NL Sounds; No Tenderness; No Distention Lymphatic: No Cervical Adenopathy Extremities: No Edema, No Clubbing, Cyanosis, - - Palpable muscle spasms to left lower extremities. Skin: No Rash or Ulcers, No Nodules or Sclerosis Neurological: Alert and Oriented x 3 Lines/Tubes/Other Access: Clean, Dry and Intact Peripheral IV Result Diagrams: 01/10/20 04:38 01/10/20 04:38 Additional Lab and Data: . Microbiology and Other Data: Microbiology 01/08/20 05:50 Urine Culture - Final Urine Enterococcus Faecalis Normal Kelsea Assess/Plan/Problems-Billing Assessment: 79 yr old male with pmh of HHT, htn, hld, chronic back pain; who presented to the ED for a fall and weakness - Patient Problems (1) Left-sided weakness Current Visit: Yes Status: Acute Code(s): R53.1 - WEAKNESS SNOMED Code(s) : 953590428 Comment: - Continues to decline further evaluation such as MRI. I suspect there may have been a stroke but patient does not wish to pursue diagnosis or treatment. - Acute on chronic weakness. - Left sided weakness for many years that has worsened in the last 10 days - PT recommends STR, family amenable. (2) Depression Current Visit: Yes Status: Acute Code(s): F32.9 - MAJOR DEPRESSIVE DISORDER , SINGLE EPISODE, UNSPECIFIED SNOMED Code(s): 89612455 Comment: - Continues to be profoundly depressed. Expressed that he is tired of living with chronic pain and declining health, requested palliative care consult. Dr. Nielsen aware, assessed patient and was supportive of this decision as he was thinking clearly about his limitations and goals of care. Dr. Baeza saw patient , made a limited DNR. - Psych consult - Fluoxetine dosing increased by Dr. Gordon on 01/08/20. Patient felt like his inital dosing started outpatient was doing nothing. (3) Hereditary hemorrhagic telangiectasia Current Visit: Yes Status: Acute Code(s): I78.0 - HEREDITARY HEMORRHAGIC TELANGIECTASIA SNOMED Code(s): 93795032 Comment: - Cont home iron - Hold on any AC given hx of bleeding (4) Hypertension Current Visit: Yes Status: Acute Code(s): I10 - ESSENTIAL (PRIMARY) HYPERTENSION SNOMED Code(s): 73061854 Comment: - Cont atenolol. - Hold chlorthalidone and prn furosemide. (5) BPH (benign prostatic hyperplasia) Current Visit: Yes Status: Acute Code(s): N40.0 - BENIGN PROSTATIC HYPERPLASIA WITHOUT LOWER URINRY TRACT SYMP SNOMED Code(s): 926633045 Comment: - Mendoza placed on 01/08/20. Keep mendoza in place for a week, then may attempt a voiding trial. - Continue finesteride and tamsulosin. (6) DVT prophylaxis Current Visit: Yes Status: Acute Code(s): Z29.9 - ENCOUNTER FOR PROPHYLACTIC MEASURES, UNSPECIFIED SNOMED Code(s): 432110821 Comment: - SCDs given HHT (7) DNR (do not resuscitate) Current Visit: Yes Status: Acute Comment: - DNR/DNI Status and Disposition: Condition: Fair Disp: Inpatient on 4S. D/C to [facility]. Counseling and/or Coordination of Care Minutes: Time spent in direct face contact = 60 minutes. Attending: Tianna Mancilla
[2020-01-10] MEDS: Morphine ORAL CONCENTRATE* 5 MG/0.25 ML ORAL.SYRIN PO PRN (17:52)
[2020-01-11] MEDS: Morphine ORAL CONCENTRATE* 5 MG/0.25 ML ORAL.SYRIN PO PRN (05:14)
[2020-01-11] MEDS: Acetaminophen TAB* 325 MG PO SCH ×3 (09:02→20:06)
[2020-01-11] MEDS: Ferrous Sulfate TAB* 325 MG PO SCH (09:04)
[2020-01-11] MEDS: FLUoxetine CAP* 20 MG PO SCH (09:04)
[2020-01-11] MEDS: Atenolol TAB* 25 MG PO SCH (09:05)
[2020-01-11] MEDS: Calcium/Vitamin D TAB 250/125* TAB PO SCH (09:05)
[2020-01-11] MEDS: Morphine TAB Extended Release (*) 15 MG TAB.ER PO SCH ×2 (09:06→20:07)
[2020-01-11] MEDS: Finasteride TAB* 5 MG PO SCH (09:06)
[2020-01-11] MEDS: Magnesium Oxide TAB* 400 MG PO SCH (09:06)
[2020-01-11] MEDS: Baclofen TAB* 10 MG PO SCH ×3 (09:07→20:07)
[2020-01-11] MEDS: Tamsulosin CAP* 0.4 MG PO SCH (09:07)
[2020-01-11] MEDS: Polyethylene Glycol 3350* 17 GM PACKET PO SCH (09:07)
[2020-01-11] MEDS: Ascorbic Acid TAB* 500 MG PO SCH (09:32)
--- NOTE | 2020-01-11 14:43 | PN ---
Subjective Date of Service: 01/11/20 Interval History: Patient has generalized pain which responds somewhat to pain medication. Patient still feels as if he has no desire to go no living and no desire for further imaging or treatment. Patient is amenable to having all non-palliative treatments discontinued at this time. Family History: Unchanged from Admission Social History: Unchanged from Admission Past Medical History: Unchanged from Admission Objective Active Medications: Acetaminophen (Tylenol Tab*) 975 mg PO TID [facility] Last Admin: 01/11/20 09:02 Dose: 975 mg Baclofen (Lioresal Tab*) 10 mg PO TID [facility] Last Admin: 01/11/20 09:07 Dose: 10 mg Fluoxetine HCl (Prozac Cap*) 40 mg PO DAILY [facility] Last Admin: 01/11/20 09:04 Dose: 40 mg Lorazepam (Ativan Tab(*)) 0.5 mg PO Q6H PRN PRN Reason: ANXIETY Magnesium Hydroxide (Milk Of Magnesia Liq*) 30 ml PO Q4H PRN PRN Reason: CONSTIPATION Morphine Sulfate (Ms Contin(*)) 15 mg PO BID [facility] Last Admin: 01/11/20 09:06 Dose: 15 mg Morphine Sulfate (Morphine Oral Concentrate*) 5 mg PO Q4H PRN PRN Reason: PAIN - SEVERE Last Admin: 01/11/20 05:14 Dose: 5 mg Polyethylene Glycol/Electrolytes (Miralax (17 Gm Dose Patricio)) 17 gm PO DAILY [facility] Last Admin: 01/11/20 09:07 Dose: 17 gm Vital Signs - 8 hr 01/11/20 01/11/20 01/11/20 07:15 08:00 09:06 Temperature 97.1 F Pulse Rate 65 Respiratory 16 16 14 Rate Blood Pressure 133/69 (mmHg) O2 Sat by Pulse 97 Oximetry 01/11/20 01/11/20 09:08 11:40 Temperature Pulse Rate Respiratory 14 15 Rate Blood Pressure (mmHg) O2 Sat by Pulse Oximetry Oxygen Devices in Use Now: None Appearance: Patient is a 79 male who appears older than stated age and is sitting in the bed in [facility]. Eyes: No Scleral Icterus, PERRLA Ears/Nose/Mouth/Throat: NL Teeth, Lips, Gums, Clear Oropharnyx, Mucous Membranes Moist Neck: NL Appearance and Movements; NL JVP, Trachea Midline Respiratory: Symmetrical Chest Expansion and Respiratory Effort, Clear to Auscultation Cardiovascular: NL Sounds; No Murmurs; No JVD, RRR, No Edema Abdominal: NL Sounds; No Tenderness; No Distention, No Hepatosplenomegaly Lymphatic: No Cervical Adenopathy Extremities: No Edema, No Clubbing, Cyanosis Skin: No Rash or Ulcers, No Nodules or Sclerosis Neurological: Alert and Oriented x 3, NL Sensation, NL Muscle Strength and Tone , - - CN II-XII intact. Result Diagrams: 01/10/20 04:38 01/10/20 04:38 Additional Lab and Data: . Microbiology and Other Data: Microbiology 01/08/20 05:50 Urine Culture - Final Urine Enterococcus Faecalis Normal Kelsea Assess/Plan/Problems-Billing Assessment: 79 yr old male with pmh of HHT, htn, hld, chronic back pain; who presented to the ED for a fall and weakness. Patient wants no more intervention or testing and has opted for full comfort measures. - Patient Problems (1) Major depressive episode Current Visit: Yes Status: Acute Code(s): F32.9 - MAJOR DEPRESSIVE DISORDER , SINGLE EPISODE, UNSPECIFIED SNOMED Code(s): 937425886 Comment: - Severe major depression, No response to Fluoxetine and no response to increased dose - Patient has capacity to make his own decisions per psychiatry - Continue Fluoxetine (2) BPH (benign prostatic hyperplasia) Current Visit: Yes Status: Acute Code(s): N40.0 - BENIGN PROSTATIC HYPERPLASIA WITHOUT LOWER URINRY TRACT SYMP SNOMED Code(s): 156060284 Comment: - Mendoza placed on 01/08/20 for retention - Patient is not bothered by mendoza, not interested in treatment for UTI/ bacteriuria - Continue mendoza indefinitely. 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 I suspect there may have been a stroke but patient does not wish to pursue diagnosis or treatment. - Acute on chronic weakness. - Left sided weakness for many years that has worsened in the last 10 days - PT recommends STR, family amenable. (7) DNR (do not resuscitate) Current Visit: Yes Status: Acute Comment: - DNR/DNI - Comfort measure only. (8) DVT prophylaxis Current Visit: Yes Status: Acute Code(s): Z29.9 - ENCOUNTER FOR PROPHYLACTIC MEASURES, UNSPECIFIED SNOMED Code(s): 289577129 Comment: - SCDs given HHT Status and Disposition: Condition: Stable Disp: Inpatient on 4S. D/C to [facility] on comfort care.
[2020-01-12] MEDS: Morphine ORAL CONCENTRATE* 5 MG/0.25 ML ORAL.SYRIN PO PRN ×2 (05:49→10:04)
[2020-01-12] MEDS: Polyethylene Glycol 3350* 17 GM PACKET PO SCH (07:27)
[2020-01-12] MEDS: Acetaminophen TAB* 325 MG PO SCH ×3 (07:27→20:36)
[2020-01-12] MEDS: FLUoxetine CAP* 20 MG PO SCH (07:28)
[2020-01-12] MEDS: Baclofen TAB* 10 MG PO SCH ×3 (07:28→20:40)
[2020-01-12] MEDS: Morphine TAB Extended Release (*) 15 MG TAB.ER PO SCH ×2 (07:28→20:40)
--- NOTE | 2020-01-12 17:18 | PN ---
Subjective Date of Service: 01/12/20 Interval History: Pt states multiple times that he wants "it to be over" and "i just want to " . Denies SI. Continues to refuse treatments or imaging, other than what will help to keep him comfortable. Believes that taking ativan has helped him feel better and has helped to decrease his pain as well. Denies any headache, CP, SOB , N/V/D, unusual numbness/tingling. Family History: Unchanged from Admission Social History: Unchanged from Admission Past Medical History: Unchanged from Admission Objective Active Medications: Acetaminophen (Tylenol Tab*) 975 mg PO TID [facility] Last Admin: 01/12/20 13:24 Dose: 975 mg Baclofen (Lioresal Tab*) 10 mg PO TID [facility] Last Admin: 01/12/20 13:25 Dose: 10 mg Fluoxetine HCl (Prozac Cap*) 40 mg PO DAILY [facility] Last Admin: 01/12/20 07:28 Dose: 40 mg Lorazepam (Ativan Tab(*)) 0.5 mg PO Q6H PRN PRN Reason: ANXIETY Last Admin: 01/12/20 13:25 Dose: 0.5 mg Magnesium Hydroxide (Milk Of Magnesia Liq*) 30 ml PO Q4H PRN PRN Reason: CONSTIPATION Morphine Sulfate (Ms Contin(*)) 15 mg PO BID [facility] Last Admin: 01/12/20 07:28 Dose: 15 mg Morphine Sulfate (Morphine Oral Concentrate*) 5 mg PO Q4H PRN PRN Reason: PAIN - SEVERE Last Admin: 01/12/20 10:04 Dose: 5 mg Polyethylene Glycol/Electrolytes (Miralax (17 Gm Dose Patricio)) 17 gm PO DAILY [facility] Last Admin: 01/12/20 07:27 Dose: 17 gm Vital Signs - 8 hr 01/12/20 01/12/20 01/12/20 10:04 12:06 13:25 Respiratory 20 12 22 Rate 01/12/20 15:01 Respiratory 16 Rate Oxygen Devices in Use Now: None Appearance: laying in bed, able to rest but appears uncomfortable and slightly anxious and sad when awakened Ears/Nose/Mouth/Throat: Clear Oropharnyx Respiratory: Symmetrical Chest Expansion and Respiratory Effort - not taking deep breaths, slightly diminished, no adventitious noises heard Cardiovascular: RRR Abdominal: NL Sounds; No Tenderness; No Distention Extremities: No Edema Neurological: Alert and Oriented x 3 Nutrition: - - refusing to eat/drink Result Diagrams: 01/10/20 04:38 01/10/20 04:38 Additional Lab and Data: . Microbiology and Other Data: Microbiology 01/08/20 05:50 Urine Culture - Final Urine Enterococcus Faecalis Normal Kelsea Assess/Plan/Problems-Billing Assessment: 79 yr old male with pmh of HHT, htn, hld, chronic back pain; who presented to the ED for a fall and increased weakness throughout LUE and LLE. Patient wants no more intervention or testing and has opted for full comfort measures. - Patient Problems (1) Chronic back pain Current Visit: Yes Status: Acute Code(s): M54.9 - DORSALGIA, UNSPECIFIED; G89.29 - OTHER CHRONIC PAIN SNOMED Code(s): 699052678 Comment: And left hip pain. - Cont Morphine and Baclofen - Continue ativan PRN (2) Left-sided weakness Current Visit: Yes Status: Acute Code(s): R53.1 - WEAKNESS SNOMED Code(s) : 450413291 Comment: - Continues to decline further evaluation such as MRI. I suspect there may have been a stroke but patient does not wish to pursue diagnosis or treatment. - Acute on chronic weakness. - Left sided weakness for many years that has worsened in the last 10 days prior to arrival - PT recommends STR, family amenable, however awaiting decision on hospice placement (3) BPH (benign prostatic hyperplasia) Current Visit: Yes Status: Acute Code(s): N40.0 - BENIGN PROSTATIC HYPERPLASIA WITHOUT LOWER URINRY TRACT SYMP SNOMED Code(s): 472405320 Comment: - Mendoza placed on 01/08/20 for retention - Patient is not bothered by mendoza, not interested in treatment for UTI/ bacteriuria - Continue mendoza indefinitely. (4) Depression Current Visit: Yes Status: Acute Code(s): F32.9 - MAJOR DEPRESSIVE DISORDER , SINGLE EPISODE, UNSPECIFIED SNOMED Code(s): 21327671 Comment: - Continues to be profoundly depressed. Expressed that he is tired of living with chronic pain and declining health, requested palliative care consult. Dr. Toledoke aware, assessed patient and was supportive of this decision as he was thinking clearly about his limitations and goals of care. Dr. Baeza saw patient , made a limited DNR. - Psych consult - Fluoxetine dosing increased by Dr. Gordon on 01/08/20. Continue. (5) Hereditary hemorrhagic telangiectasia Current Visit: Yes Status: Acute Code(s): I78.0 - HEREDITARY HEMORRHAGIC TELANGIECTASIA SNOMED Code(s): 87938637 Comment: - Stop Home Iron as pt is declining treatment of most medical conditions at this time (6) Hypercholesteremia Current Visit: Yes Status: Acute Code(s): E78.00 - PURE HYPERCHOLESTEROLEMIA , UNSPECIFIED SNOMED Code(s): 48637304 Comment: Declining treatment of this condition (7) Hypertension Current Visit: Yes Status: Acute Code(s): I10 - ESSENTIAL (PRIMARY) HYPERTENSION SNOMED Code(s): 03282843 Comment: - Stop Atenolol for comfort (8) DNR (do not resuscitate) Current Visit: Yes Status: Acute Comment: - DNR/DNI - Comfort measure only. (9) DVT prophylaxis Current Visit: Yes Status: Acute Code(s): Z29.9 - ENCOUNTER FOR PROPHYLACTIC MEASURES, UNSPECIFIED SNOMED Code(s): 655427622 Comment: - SCDs given HHT Status and Disposition: Condition: Stable Disp: Inpatient on 4S. D/C to [facility] or hospice on comfort care. Attending: Flavia Villarreal
[2020-01-13] MEDS: Acetaminophen TAB* 325 MG PO SCH ×3 (09:36→20:50)
[2020-01-13] MEDS: Morphine TAB Extended Release (*) 15 MG TAB.ER PO SCH ×2 (09:39→21:46)
[2020-01-13] MEDS: Baclofen TAB* 10 MG PO SCH ×3 (09:40→20:50)
[2020-01-13] MEDS: Polyethylene Glycol 3350* 17 GM PACKET PO SCH (09:41)
[2020-01-13] MEDS: FLUoxetine CAP* 20 MG PO SCH (09:41)
--- NOTE | 2020-01-13 16:28 | PN ---
Subjective Date of Service: 01/13/20 Interval History: Pt continues to state "I just want to ". No SI. C/o pain but states that while he is lying still he is "okay". Does not want additional pain medications at this time. Per nursing he is still refusing food. Denies any headache, CP, SOB, N/V/D, unusual numbness/tingling. Continues to decline any further medical treatments or investigations. Accepting pain medications at times, also has been accepting prozac. Otherwise wishes to continue with comfort care measures. Spoke to today on the phone with an update about current condition, let her know that if we suspect any deterioration in condition we will let her know and at that time there should be no issue with visitation. Family History: Unchanged from Admission Social History: Unchanged from Admission Past Medical History: Unchanged from Admission Objective Active Medications: Acetaminophen (Tylenol Tab*) 975 mg PO TID [facility] Last Admin: 01/13/20 14:59 Dose: Not Given Baclofen (Lioresal Tab*) 10 mg PO TID [facility] Last Admin: 01/13/20 14:59 Dose: Not Given Fluoxetine HCl (Prozac Cap*) 40 mg PO DAILY [facility] Last Admin: 01/13/20 09:41 Dose: 40 mg Lorazepam (Ativan Tab(*)) 0.5 mg PO Q6H PRN PRN Reason: ANXIETY Last Admin: 01/12/20 13:25 Dose: 0.5 mg Magnesium Hydroxide (Milk Of Magnesia Liq*) 30 ml PO Q4H PRN PRN Reason: CONSTIPATION Morphine Sulfate (Ms Contin(*)) 15 mg PO BID [facility] Last Admin: 01/13/20 09:39 Dose: 15 mg Morphine Sulfate (Morphine Oral Concentrate*) 5 mg PO Q4H PRN PRN Reason: PAIN - SEVERE Last Admin: 01/12/20 10:04 Dose: 5 mg Polyethylene Glycol/Electrolytes (Miralax (17 Gm Dose Patricio)) 17 gm PO DAILY [facility] Last Admin: 01/13/20 09:41 Dose: Not Given Vital Signs - 8 hr 01/13/20 01/13/20 01/13/20 09:39 11:35 16:12 Respiratory 18 16 18 Rate 01/13/20 16:13 Respiratory 18 Rate Oxygen Devices in Use Now: None Appearance: Laying in bed, guarded, emotional Ears/Nose/Mouth/Throat: Clear Oropharnyx, - - mucous membranes slightly dry Respiratory: - - Not taking deep breaths, regular effort and clear but diminished throughout bilaterally Cardiovascular: RRR Abdominal: - - BSX4, soft, states tenderness to LLQ with palpation Extremities: - - 1+ edema BLE Neurological: - - Appears tired, orientedX3 Nutrition: - - Declining most POs Result Diagrams: 01/10/20 04:38 01/10/20 04:38 Additional Lab and Data: . Microbiology and Other Data: Microbiology 01/08/20 05:50 Urine Culture - Final Urine Enterococcus Faecalis Normal Kelsea Assess/Plan/Problems-Billing Assessment: 79 yr old male with pmh of HHT, htn, hld, chronic back pain; who presented to the ED for a fall and increased weakness throughout LUE and LLE. Patient wants no more intervention or testing and has opted for full comfort measures. - Patient Problems (1) Chronic back pain Current Visit: Yes Status: Acute Code(s): M54.9 - DORSALGIA, UNSPECIFIED; G89.29 - OTHER CHRONIC PAIN SNOMED Code(s): 170452225 Comment: And left hip pain. - Cont Morphine and Baclofen - Continue ativan PRN (2) Left-sided weakness Current Visit: Yes Status: Acute Code(s): R53.1 - WEAKNESS SNOMED Code(s) : 008961995 Comment: - Continues to decline further evaluation such as MRI. I suspect there may have been a stroke but patient does not wish to pursue diagnosis or treatment. - Acute on chronic weakness. - Left sided weakness for many years that has worsened in the last 10 days prior to arrival - PT recommends STR, family amenable, however awaiting decision on hospice placement (3) BPH (benign prostatic hyperplasia) Current Visit: Yes Status: Acute Code(s): N40.0 - BENIGN PROSTATIC HYPERPLASIA WITHOUT LOWER URINRY TRACT SYMP SNOMED Code(s): 979157519 Comment: - Mendoza placed on 01/08/20 for retention - Patient is not bothered by mendoza, not interested in treatment for UTI/ bacteriuria - Continue mendoza indefinitely. (4) Depression Current Visit: Yes Status: Acute Code(s): F32.9 - MAJOR DEPRESSIVE DISORDER , SINGLE EPISODE, UNSPECIFIED SNOMED Code(s): 71094080 Comment: - Continues to be profoundly depressed. Expressed that he is tired of living with chronic pain and declining health, requested palliative care consult. Dr. Nielsen aware, assessed patient and was supportive of this decision as he was thinking clearly about his limitations and goals of care. Dr. Baeza saw patient , made a limited DNR. - Psych consult - Fluoxetine dosing increased by Dr. Gordon on 01/08/20. Continue per pt wishes. (5) Hereditary hemorrhagic telangiectasia Current Visit: Yes Status: Acute Code(s): I78.0 - HEREDITARY HEMORRHAGIC TELANGIECTASIA SNOMED Code(s): 54671355 Comment: - Stop Home Iron as pt is declining treatment of most medical conditions at this time (6) Hypercholesteremia Current Visit: Yes Status: Acute Code(s): E78.00 - PURE HYPERCHOLESTEROLEMIA , UNSPECIFIED SNOMED Code(s): 76565955 Comment: Declining treatment of this condition (7) Hypertension Current Visit: Yes Status: Acute Code(s): I10 - ESSENTIAL (PRIMARY) HYPERTENSION SNOMED Code(s): 93650208 Comment: - Stop Atenolol for comfort (8) DNR (do not resuscitate) Current Visit: Yes Status: Acute Comment: - DNR/DNI - Comfort measure only. (9) DVT prophylaxis Current Visit: Yes Status: Acute Code(s): Z29.9 - ENCOUNTER FOR PROPHYLACTIC MEASURES, UNSPECIFIED SNOMED Code(s): 246461927 Comment: - SCDs given HHT, may d/c if pt does not tolerate in relation to comfort care Status and Disposition: Condition: Stable Disp: Inpatient on 4S. D/C to [facility] or hospice on comfort care. Attending: Flavia Villarreal
[2020-01-14] MEDS: Baclofen TAB* 10 MG PO SCH ×3 (08:44→21:26)
[2020-01-14] MEDS: Acetaminophen TAB* 325 MG PO SCH ×3 (08:44→21:23)
[2020-01-14] MEDS: FLUoxetine CAP* 20 MG PO SCH (08:44)
[2020-01-14] MEDS: Polyethylene Glycol 3350* 17 GM PACKET PO SCH (08:44)
[2020-01-14] MEDS: Morphine TAB Extended Release (*) 15 MG TAB.ER PO SCH ×2 (08:45→21:27)
--- NOTE | 2020-01-14 13:02 | PN ---
Subjective Date of Service: 01/14/20 Interval History: Long discussion with pt this morning about goals of care. Per notes from last night pt had mentioned wanting to be treated for UTI and then later declining. Today he stated multiple times "I should say yes" and then again declining. He denies having any symptoms in relation to a UTI. Continues to c/o the same lower back and L hip pain but nothing new. Spoke about the intention of comfort care vs general medical care and treating specific conditions. Pt made it known that a big concern for him is whether there will be a financial burden on his for whichever route he decides to continue with. Isabella, caser up was present for conversation. He is very difficult to get straight answers from , but after much deliberation it sounds that the pt's overall goal is to remain on comfort care and it was discussed with him that social work will be involved and will see what options are available for insurance coverage. He is continuing to decline any further imaging or workup, does not wish to be treated for UTI at this time, does not wish to be on any of his usual medications but will continue with prozac and pain medications, stated specifically that he does not want to go through PT or be physically rehabilitated. Currently denies any LEON, CP, SOB, abdominal discomfort, unusual numbness/ tingling. Family History: Unchanged from Admission Social History: Unchanged from Admission Past Medical History: Unchanged from Admission Objective Active Medications: Acetaminophen (Tylenol Tab*) 975 mg PO TID [facility] Last Admin: 01/14/20 08:44 Dose: 975 mg Baclofen (Lioresal Tab*) 10 mg PO TID [facility] Last Admin: 01/14/20 08:44 Dose: 10 mg Fluoxetine HCl (Prozac Cap*) 40 mg PO DAILY [facility] Last Admin: 01/14/20 08:44 Dose: 40 mg Lorazepam (Ativan Tab(*)) 0.5 mg PO Q6H PRN PRN Reason: ANXIETY Last Admin: 01/12/20 13:25 Dose: 0.5 mg Magnesium Hydroxide (Milk Of Magnesia Liq*) 30 ml PO Q4H PRN PRN Reason: CONSTIPATION Morphine Sulfate (Ms Contin(*)) 15 mg PO BID [facility] Last Admin: 01/14/20 08:45 Dose: 15 mg Morphine Sulfate (Morphine Oral Concentrate*) 5 mg PO Q4H PRN PRN Reason: PAIN - SEVERE Last Admin: 01/12/20 10:04 Dose: 5 mg Polyethylene Glycol/Electrolytes (Miralax (17 Gm Dose Patricio)) 17 gm PO DAILY [facility] Last Admin: 01/14/20 08:44 Dose: 17 gm Vital Signs - 8 hr 01/14/20 01/14/20 08:45 10:28 Respiratory 20 18 Rate Oxygen Devices in Use Now: None Appearance: Laying in bed, resting but easily awoken, mildly emotional Eyes: No Scleral Icterus Ears/Nose/Mouth/Throat: - - mucous membranes dry Respiratory: Symmetrical Chest Expansion and Respiratory Effort, Clear to Auscultation Cardiovascular: RRR Abdominal: - - normoactive BS throughout, soft, denies tenderness with palpation Extremities: No Edema, - - ppp 2+ bilaterally Neurological: - - tired, easily awoken, mildly emotional Nutrition: - - has had some fluids today per nursing Result Diagrams: 01/10/20 04:38 01/10/20 04:38 Additional Lab and Data: . Microbiology and Other Data: Microbiology 01/08/20 05:50 Urine Culture - Final Urine Enterococcus Faecalis Normal Kelsea Assess/Plan/Problems-Billing Assessment: 79 yr old male with pmh of HHT, htn, hld, chronic back pain; who presented to the ED for a fall and increased weakness throughout LUE and LLE. Patient wants no more intervention or testing and has opted for full comfort measures. - Patient Problems (1) Chronic back pain Current Visit: Yes Status: Acute Code(s): M54.9 - DORSALGIA, UNSPECIFIED; G89.29 - OTHER CHRONIC PAIN SNOMED Code(s): 783340288 Comment: And left hip pain. - Cont Morphine and Baclofen - Continue ativan PRN (2) Left-sided weakness Current Visit: Yes Status: Acute Code(s): R53.1 - WEAKNESS SNOMED Code(s) : 099998451 Comment: - Continues to decline further evaluation such as MRI. I suspect there may have been a stroke but patient does not wish to pursue diagnosis or treatment. - Acute on chronic weakness. - Left sided weakness for many years that has worsened in the last 10 days prior to arrival - At this time pt is declining any PT or rehab and wishes to remain on comfort care status (3) BPH (benign prostatic hyperplasia) Current Visit: Yes Status: Acute Code(s): N40.0 - BENIGN PROSTATIC HYPERPLASIA WITHOUT LOWER URINRY TRACT SYMP SNOMED Code(s): 868836713 Comment: - Mendoza placed on 01/08/20 for retention - Patient is not bothered by mendoza, not interested in treatment for UTI/ bacteriuria - Continue mendoza indefinitely. (4) Depression Current Visit: Yes Status: Acute Code(s): F32.9 - MAJOR DEPRESSIVE DISORDER , SINGLE EPISODE, UNSPECIFIED SNOMED Code(s): 09352621 Comment: - Continues to be profoundly depressed. Expressed that he is tired of living with chronic pain and declining health, requested palliative care consult. Dr. Nielsen aware, assessed patient and was supportive of this decision as he was thinking clearly about his limitations and goals of care. Dr. Baeza saw patient , made a limited DNR. - Psych consult - Fluoxetine dosing increased by Dr. Gordon on 01/08/20. Continue per pt wishes. (5) Hereditary hemorrhagic telangiectasia Current Visit: Yes Status: Acute Code(s): I78.0 - HEREDITARY HEMORRHAGIC TELANGIECTASIA SNOMED Code(s): 86601184 Comment: - Stop Home Iron as pt is declining treatment of most medical conditions at this time (6) Hypercholesteremia Current Visit: Yes Status: Acute Code(s): E78.00 - PURE HYPERCHOLESTEROLEMIA , UNSPECIFIED SNOMED Code(s): 37284944 Comment: Declining treatment of this condition (7) Hypertension Current Visit: Yes Status: Acute Code(s): I10 - ESSENTIAL (PRIMARY) HYPERTENSION SNOMED Code(s): 96967843 Comment: - Declining treatment for condition at this time (8) DNR (do not resuscitate) Current Visit: Yes Status: Acute Comment: - DNR/DNI - See HPI for review of wishes to continue with comfort care measures. (9) DVT prophylaxis Current Visit: Yes Status: Acute Code(s): Z29.9 - ENCOUNTER FOR PROPHYLACTIC MEASURES, UNSPECIFIED SNOMED Code(s): 367320289 Comment: - SCDs given HHT, may d/c if pt does not tolerate in relation to comfort care Status and Disposition: Condition: Stable Disp: Inpatient on 4S. Attending: Flavia Villarreal
[2020-01-15 08:31] VITALS: BP 134/74
[2020-01-15] MEDS ORDERED: Magnesium Hydroxide LIQ* 30 ML UDC PO ONE (09:48)
[2020-01-15] MEDS ORDERED: Ascorbic Acid TAB* 500 MG PO SCH (10:00)
[2020-01-15] MEDS ORDERED: Calcium/Vitamin D TAB 250/125* TAB PO SCH (10:00)
[2020-01-15] MEDS ORDERED: Ferrous Sulfate TAB* 325 MG PO SCH (10:00)
[2020-01-15] MEDS ORDERED: Tamsulosin CAP* 0.4 MG PO SCH (10:00)
[2020-01-15] MEDS ORDERED: Atenolol TAB* 25 MG PO SCH (10:00)
[2020-01-15] MEDS ORDERED: Finasteride TAB* 5 MG PO SCH (10:00)
[2020-01-15] MEDS ORDERED: Amoxicillin/Clavulanate TAB* 500 MG PO SCH (10:00)
[2020-01-15] MEDS: Acetaminophen TAB* 325 MG PO SCH ×2 (10:24→15:28)
[2020-01-15] MEDS: Baclofen TAB* 10 MG PO SCH ×2 (10:25→15:29)
[2020-01-15] MEDS: Morphine TAB Extended Release (*) 15 MG TAB.ER PO SCH (10:26)
[2020-01-15] MEDS: Polyethylene Glycol 3350* 17 GM PACKET PO SCH (10:26)
[2020-01-15] MEDS: FLUoxetine CAP* 20 MG PO SCH (10:26)
--- NOTE | 2020-01-15 13:48 | DS ---
CC: Dr. Fay * DATE OF ADMISSION: 01/05/2020. DATE OF DISCHARGE: 01/15/2020. ATTENDING PHYSICIAN: Dr. Villarreal * (dictated by Sav Berrios NP). PRIMARY CARE PHYSICIAN: Dr. Fay. CONSULTING PHYSICIANS: Dr. Shweta Masters; Dr. Elder Gordon; Dr. Donna Baeza. PRIMARY DIAGNOSIS: Acute on chronic left-sided weakness, status post fall. SECONDARY DIAGNOSES: 1. UTI with enterococcus faecalis. 2. 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 3. BPH. 4. Depression. 5. HHT. 6. Hypercholesterolemia. 7. Hypertension. HISTORY OF PRESENT ILLNESS/HOSPITAL COURSE: Mr. Newberry is a 79-year-old male with a past medical history significant for chronic left-sided weakness, HHT, hypertension, hypercholesterolemia, BPH, chronic low back and left hip pain, and depression. On 01/05/2020, he had a fall at home. He stated that he has had chronic left-sided weakness for many years; however, it had been increasingly worse over the last ten days prior to coming in to the hospital. He states that he is generally in lots of pain and if he did not have his walker , he would not be able to keep his balance. He did have some imaging done while he was in the emergency department. However, when asked about other options for imaging, as well as consultations from other specialities, the patient declined. He was stating that he wanted "to " many times. He did not have any optimism about his care or about his future. Psychiatry did consult on Mr. Newberry and he was deemed to have capacity to make his own decisions. He wished to be a DNR/DNI and wanted to be on comfort measures only. He did not want further imaging or consultations. He did not want his usual medications, although he was accepting Prozac and also was accepting comfort care medications. He often would not eat or drink while up on the floor. He was planning to remain on comfort care. He was refusing physical therapy. He was refusing subacute rehab. He was wishing to leave the hospital on comfort care measures only. He was given a Self catheter for comfort measures and it was noted that he had a urinary tract infection and the patient declined treatment for this UTI. He did have a Palliative Care consult with Dr. Baeza. He was not qualifying for hospice care, but again did want comfort care measures. However, today the patient stated that he wanted to go to rehab. It was discussed with him in length about participating with physical and occupational therapy, restarting his usual medications and being treated for the urinary tract infection. The patient wanted all available treatments. Considering his exceptional improvement from today compared to the last week plus of his stay, it is reasonable that he does not require any other imaging at this point or specialty consultation. This has been discussed with my attending physician, Dr. Villarreal. Awaiting recommendations from Physical and Occupational Therapy, the patient has a bed offer from [facility] in [place]. Today, he is more alert and positive than during any other care that I have provided for him during this stay. He is eager to get stronger and expresses willingness to participate with therapies. His has been notified of this. Today, he denies any recent fevers, chills, headache, feeling lightheaded, chest pain, palpitations, shortness of breath, nausea, vomiting, diarrhea, symptoms of UTI with catheter in place, unusual numbness, tingling or swelling. STUDIES ON ADMISSION: The patient did have a CT scan of the lumbar, thoracic, and cervical spine. CT lumbar spine, impression states: Osteopenia. Degenerative disk disease and osteoarthritis. No acute osseous injury to the lumbar spine which was confirmed via telephone with Dr. Ho. In the findings there were multiple levels with anywhere from mild to severe neural foraminal narrowing. There was also moderate to severe narrowing of the central canal. Thoracic spine CT impression states: Osteopenia. Degenerative disk disease and osteoarthritis. No acute osseous injury to the thoracic spine. Exposure to granulomatous disease. Diffuse loss of intervertebral disk height throughout the spine noted. CT cervical spine impression states: No fracture or traumatic malalignment of the cervical spine. Varying degrees of multiple spondylosis result in at least moderate spinal canal stenosis at C6-7. There is multilevel neural foraminal stenosis. Osteopenia. 1.1 cm nodule on the left lobe of the thyroid. There is moderate to severe multilevel vertebral disk height loss with relative sparing of C2 through C3. PERTINENT LABORATORY DATA: Troponins on arrival 0.05 and then approximately three hours later 0.04. Most recent CBC from 01/10/2020: WBC 6.1, RBC 4.39, hemoglobin 14.0, hematocrit 40, MCV 91, MCH 32, MCHC 35, RDW 14, platelet count 168. Most recent chemistry from 01/10/2020: Sodium 131, potassium 3.8, chloride 100, carbon dioxide 27, anion gap 4, BUN 19, creatinine 0.64, estimated GFR 121.0, BUN creatinine ratio 29.7, glucose 103, calcium 8.2, magnesium 1.8, triglycerides 80, cholesterol 131, LDL 78, HDL 37. Most recent TSH from 01/08/2020 2.28. REVIEW OF SYSTEMS: A ten point review of systems was completed with this patient. Please see HPI for all pertinent positives and negatives. PHYSICAL EXAMINATION: Constitutional: The patient is sitting up in bed, alert , in good spirits. Last Vital Signs: Temperature 98.7, heart rate 73, respiratory rate 16, O2 sat 96 percent on room air, blood pressure 134/74. HEENT: PERRL. No scleral icterus noted. Mucus membranes appear moist. Cardiovascular: Heart rate regular. S1, S2 present. No murmurs, rubs, or gallops noted. Extremities: No edema. Respiratory: Lung sounds clear throughout bilaterally. Normal respiratory effort. GI: Normoactive bowel sounds throughout. Abdomen is soft, nontender. Musculoskeletal: Range of motion and strength 4/5 to right upper extremity, 3/5 to left upper extremity and right lower extremity, 1/5 to the left lower extremity. Able to wiggle toes on left lower extremity slightly, but not able to actively move left lower extremity. Neuro: Alert and oriented times three. Cranial nerves II through XII grossly intact. Psych: Responding appropriately. Normal affect. Appears hopeful. DISCHARGE PLAN: 1. Can continue with a regular diet. 2. No equipment necessary for discharge as he will be discharged to [facility]. 3. Continue to work with Physical Therapy and Occupational Therapy to gain strength and mobility. 4. Acute on chronic left-sided weakness may have been due to prior CVA versus TIA versus bleed in or around the central nervous system secondary to HHT versus general deconditioning. He will be discharged to subacute rehab where he will work with Physical Therapy and Occupational Therapy. He does see a neurologist with whom he can follow up with. 5. UTI positive for enterococcus faecalis: Treat with Augmentin 500 b.i.d. times 7 days. He does have a Self catheter which was inserted while in the hospital which was the source for the UA that resulted in findings of bacteria. He has BPH and has not been taking his usual medications for prostate. Can continue with the Self catheter for one week until he is treated appropriately for his UTI and then can do voiding trial at [place]. 6. Chronic back and left hip pain: The patient can continue his usual medications which include Morphine Sulfate 15 mg p.o. b.i.d., as well as Baclofen 10 mg p.o. t.i.d. prn. 7. BPH: Continue Finasteride and Tamsulosin. Can follow-up with PCP. 8. Depression: Fluoxetine was increased to 40 mg p.o. daily by Dr. Gordon. The patient should continue this medication and follow-up with PCP about this condition. 9. HHT: Continue Ferrous Sulfate 325 mg p.o. daily. Follow-up with PCP. 10. Hypercholesterolemia: The patient states that he had recently been taken off of medications in relation to this condition. He can follow-up with PCP about this. 11. Hypertension: Since the patient has not been taking Atenolol since the , we will restart this medication, but as his blood pressure is rather stable, we will restart that half dosing. 12. Thyroid nodule: Incidental finding on CT scan. The patient can follow-up with referral for ultrasound from PCP. 13. DNR: The patient wishes to continue with DNR/DNI status. 14. Return precautions: The patient should return to the emergency department with any stroke-like symptoms, chest pain, or unusual shortness of breath. All nonemergent concerns should be deferred to PCP. MEDICATIONS AT DISCHARGE: 1. Augmentin 500 mg p.o. b.i.d. 2. Ascorbic acid 500 mg p.o. b.i.d. 3. Atenolol 12.5 mg p.o. daily. 4. Baclofen 10 mg p.o. t.i.d. 5. Ferrous Sulfate 325 mg p.o. daily. 6. Finasteride 5 mg p.o. daily. 7. Fluoxetine 40 mg p.o. daily. 8. Morphine Sulfate ER 15 mg p.o. b.i.d. 9. MiraLax 17 gm p.o. daily. 10. Tamsulosin 0.4 mg p.o. daily. 11. Acetaminophen 975 mg p.o. t.i.d. prn. 12. Calcium Carbonate/vitamin D3 500/125 one tab p.o. daily. CONDITION ON DISCHARGE: Improving and stable. DISPOSITION: To subacute rehab. TIME SPENT: Approximately 60 minutes were spent on this admission with about 20 minutes being [id number] with the patient for interview, exam, and reviewing plan of care and discharge plan. This case has been discussed with my attending physician, Dr. Villarreal, and she agrees with this plan. SAV BERRIOS NP [id number]/CPS #: [id number] CINDY
== END 2020-01-15 17:45 | DRG 57 ==
LOC: ED 08:37 → MEDTELE 12:28
PROVIDERS: ADMIT Internal Medicine; ATTEND Hospitalist
DX: G81.94 Hemiplegia, unspecified affecting left nondominant side (principal); N39.0 Urinary tract infection, site not specified; F32.1 Major depressive disorder, single episode, moderate; I10 Essential (primary) hypertension; G89.29 Other chronic pain; E78.00 Pure hypercholesterolemia, unspecified; I78.0 Hereditary hemorrhagic telangiectasia; M62.838 Other muscle spasm; Z66 Do not resuscitate; N40.1 Benign prostatic hyperplasia with lower urinary tract symptoms; B95.2 Enterococcus as the cause of diseases classified elsewhere; F32.9 Major depressive disorder, single episode, unspecified; M85.88 Other specified disorders of bone density and structure, other site; M51.35 Other intervertebral disc degeneration, thoracolumbar region; M47.815 Spondylosis without myelopathy or radiculopathy, thoracolumbar region; M47.892 Other spondylosis, cervical region; M48.02 Spinal stenosis, cervical region; E04.1 Nontoxic single thyroid nodule; W18.30XA Fall on same level, unspecified, initial encounter; Z51.5 Encounter for palliative care; M54.9 Dorsalgia, unspecified; R73.01 Impaired fasting glucose; E66.9 Obesity, unspecified; M25.552 Pain in left hip; R26.81 Unsteadiness on feet; Y92.001 Dining room of unspecified non-institutional (private) residence as the place of occurrence of the external cause; Z68.27 Body mass index [BMI] 27.0-27.9, adult; Q27.31 Arteriovenous malformation of vessel of upper limb; Z79.891 Long term (current) use of opiate analgesic; Z79.899 Other long term (current) drug therapy; Z83.2 Family history of diseases of the blood and blood-forming organs and certain disorders involving the immune mechanism; Z83.3 Family history of diabetes mellitus; Z82.49 Family history of ischemic heart disease and other diseases of the circulatory system; Z87.891 Personal history of nicotine dependence
CPT/HCPCS: 36415; 72125; 72128; 72131; 80048; 80053; 80061; 81003; 81015; 83735; 84443; 84484; 85025; 87077; 87086; 87186; 93005; 93306; 99284; A9270-GY; J3475